=== PATIENT | female | born 1945 | race Caucasian/White ===

== ENCOUNTER 2017-10-25 16:46 | Emergency (ER) | payer OTHER, MEDICARE, SELFPAY ==
[2017-10-25 16:48] VITALS: BP 142/81; PULSE 77; RESP 16; TEMP 36.1; O2SAT 98; BMI 32.5
[2017-10-25 16:53] VITALS: BMI 32.5
--- NOTE | 2017-10-25 18:20 | CT_ITS ---
STUDY: CT FACIAL BONES WITHOUT CONTRAST REASON FOR EXAM: Female, 72 years old. Fall. Hit nose and 4 head. No loss of consciousness. RADIATION DOSAGE (If Supplied By Facility): CTDIvol = ( 29.38 ) mGy, DLP = ( 496.03 ) mGycm TECHNIQUE: The patient was scanned in a multi detector CT scanner. Sagittal and coronal images were reconstructed. Individualized dose optimization techniques were used for this CT. COMPARISON: CT of the head, October 25, 2017. CT of the brain, January 12, 2017 and September 09, 2015. FINDINGS: Large soft tissue hematoma on the left frontal region. The soft tissues appear otherwise unremarkable. Normal orbital tillman and orbital contents. Is deformity of the left nasal bones which appears unchanged from the December 2016 CT and thought to be remote. There is no marked soft tissue swelling. Normal facial bones. There is no demonstrated acute fracture. Normal visualized paranasal sinuses. CT/Sinus/Facial Bone IMPRESSION: 1. Large soft tissue hematoma over the left frontal region. 2. Slight deformity left nasal bones. This appears similar to the [address] is thought to be chronic. No acute facial bone fractures are present. Electronically Signed: Timmy Gandhi DO at 19:17 EDT Tel [phone], Service support ,
--- NOTE | 2017-10-25 18:20 | CT_ITS ---
STUDY: CT BRAIN WITHOUT CONTRAST REASON FOR EXAM: Female, 72 years old. Fell. Hit nose and 4 head. No loss of consciousness. RADIATION DOSAGE (If Supplied By Facility): CTDIvol = ( 44.99 ) mGy, DLP = ( 745.49 ) mGycm TECHNIQUE: Transaxial CT imaging of the brain was performed without administration of intravenous contrast material. Individualized dose optimization techniques were used for this CT. COMPARISON: January 12, 2017. FINDINGS: A large soft tissue hematoma over the left frontal region. There is stable deformity of the nasal bones suggesting remote fracture. Normal calvarium. Normal size ventricles and extra-axial spaces for the patient's age. Normal white matter tracts of the cerebral hemispheres. Normal basal ganglia and thalami. Normal brainstem. Normal cerebellum. There is no intracranial hemorrhage. There are no findings of an acute ischemic infarction. Normal visualized paranasal sinuses. CT/Brain/Head without Contrast IMPRESSION: 1. No acute intracranial or calvarial abnormality or major interval change. 2. Large subcutaneous hematoma over the left frontal region. Electronically Signed: Timmy Gandhi DO at 19:13 EDT Tel [phone], Service support ,
--- NOTE | 2017-10-25 18:20 | RAD_ITS ---
STUDY: X-RAY - RIGHT HAND REASON FOR EXAM: Female, 72 years old. Fall. Pain in the fifth metacarpal region. TECHNIQUE: 3 view(s) of the hand. COMPARISON: None. FINDINGS: Normal radiocarpal articulation. Normal distal radioulnar joint. Normal visualized carpal bones. 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 The remainder of the carpal articulations are normal. Normal carpometacarpal articulation of the thumb. Normal second through fifth carpometacarpal joints. Normal metacarpi. Normal metacarpophalangeal joint of the thumb. Normal interphalangeal joint of the thumb. Normal proximal and distal phalanges of the thumb. Normal metacarpophalangeal joints of the second through fifth fingers. There is diffuse articular joint space narrowing of the proximal and distal interphalangeal joints of the second through fifth fingers, but without erosive changes or periarticular soft tissue swelling. Normal phalanges of the second through fifth fingers. The soft tissue structures are unremarkable. RAD/Hand Min 3 Views IMPRESSION: Mild degenerative changes of the hand. There is no evidence of acute fracture or dislocation. Electronically Signed: Timmy Gandhi DO at 19:32 EDT Tel [phone], Service support ,
--- NOTE | 2017-10-25 19:15 | ED.DCSUM_ITS ---
- ER Visit Summary Date of Service: 10/25/17 Chief Complaint: Fall History of Present Illness: The patient is a 72 F presents to the emergency department after mechanical fall. Patient was at work. She states that her feet got tangled up with 1 of the children at her work. She fell forward. She landed directly on her face. She did not lose consciousness. She had a lot of swelling in her upper head and some pain in her nose. She also struck her right hand. She is not on anticoagulants. She does feel like her tetanus is up -to-date. She denies other injury. Physical Examination: Exam relatively unremarkable. Patient is a 5 cm ovoid hematoma the left forehead. Pupils are equal round reactive. No evidence of entrapment. There is nasal trauma, but no nasal septal hematoma. Midface is stable. No malocclusion. No neck tenderness. Heart regular rate and rhythm. Lungs clear. Abdomen soft nontender. Patient has ecchymosis on the dorsum of the right hand but flexion and extension are preserved. Patient moves all 4 extremities. GCS is 15. Test Results: [] Emergency Department Course and Treatment: Patient underwent CT of the head and face. There is evidence of hematoma, but no intracranial process. There is chronic appearing fracture of the nasal bones. X-rays of the hand are unremarkable. The patient is a symptomatic. She ambulate with a steady gait. She will continue ice and anti-inflammatories. She will be given outpatient follow-up with [facility] care. Patient is discharged home. Treatment Plan: [] Disposition: Discharge Impression: 1. Facial contusion 2. Nasal contusion 3. Right hand contusion This note was generated with [employer] dictation software. It may contain incorrect words, spelling, and punctuation that were not noted in review of the chart prior to signing ED Disposition - Plan for ED Patient: Chief Complaint: Fall Instructions: ED Contusion Face [facility] [place] [GROUP OF PHYSICIANS] - 3-5 Days
[2017-10-25 20:37] VITALS: BP 141/83; PULSE 76; RESP 15; O2SAT 97
[2017-10-25 20:38] VITALS: BP 141/83; PULSE 76; RESP 15; O2SAT 97
== END 2017-10-25 20:39 | disposition home or self-care (01) ==
PROVIDERS: Emergency Provider Emergency Medicine; Family Provider Family Medicine; PCP Family Medicine
DX: S00.33XA Contusion of nose, initial encounter (principal); S60.221A Contusion of right hand, initial encounter; S00.83XA Contusion of other part of head, initial encounter; W03.XXXA Other fall on same level due to collision with another person, initial encounter; Y93.89 Activity, other specified; Y92.89 Other specified places as the place of occurrence of the external cause; Y99.0 Civilian activity done for income or pay
CPT/HCPCS: 70450; 70486; 73130; 99282

== ENCOUNTER → 2018-01-15 09:41 | Outpatient (CLI) | payer MEDICARE, SELFPAY ==
[2018-01-15 12:20] LABS: AST(SGOT) 19 U/L (15-37); Alanine Aminotransfer ALT/SGPT 34 U/L (13-56); Albumin, Serum 3.6 g/dL (3.2-5.0); Alkaline Phosphatase 95 U/L (45-117); Anion Gap 6 (5-15); BUN 18 mg/dL (7-18); BUN/Creat Ratio 26.2 RATIO (10-20); Calcium,Total 8.9 mg/dL (8.5-10.1); Chloride 109 mmol/L (98-107); Cholesterol 190 mg/dL (200); Creatinine, Serum 0.69 mg/dL (0.55-1.02); EST Glomerular Filtration Rate 90 mL/min (>60); Est Glom Filt Rate - Afr Amer 109 mL/min (>60); Globulin 3.7 g/dL (2.2-4.2); Glucose 87 mg/dL (74-106); High Density Lipoprotein 48 mg/dL; Magnesium 2.1 mg/dL (1.6-2.6); Potassium 3.9 mmol/L (3.5-5.1); Protein, Total 7.3 g/dL (6.4-8.2); Sodium Level 141 mmol/L (136-145); Thyroid Stim Hormone (TSH) 1.99 uIU/mL (0.358-3.74); Triglycerides 136 mg/dL; Very Low Density Lipoprotein 27 mg/dL (5-40)
[2018-01-15 12:32] LABS: Microalbumin,Random Urine 8.9 mg/L (NO RANGE EST.); Microalbumin:Creatinine Ratio 12.6 mg/g CRE (<30 mg/g CRE)
== END ==
PROVIDERS: Family Provider Family Medicine; PCP Family Medicine; Visit Provider Family Medicine
DX: I10 Essential (primary) hypertension (principal); I49.9 Cardiac arrhythmia, unspecified
CPT/HCPCS: 36415; 80053; 80061; 82043; 82570; 83735; 84443

== ENCOUNTER → 2018-08-27 | Outpatient (CLI) | payer MEDICARE, SELFPAY ==
[2017-10-30 13:02] VITALS: BMI 33.5
[2018-08-27 12:41] LABS: Anion Gap 5 (5-15); BUN 18 mg/dL (7-18); BUN/Creat Ratio 27.4 RATIO (10-20); Calcium,Total 8.8 mg/dL (8.5-10.1); Chloride 108 mmol/L (98-107); Creatinine, Serum 0.66 mg/dL (0.55-1.02); EST Glomerular Filtration Rate 94 mL/min (>60); Est Glom Filt Rate - Afr Amer 114 mL/min (>60); Glucose 86 mg/dL (74-106); Potassium 3.8 mmol/L (3.5-5.1); Sodium Level 141 mmol/L (136-145)
[2018-08-27 12:55] LABS: Microalbumin,Random Urine 16.7 mg/L (NO RANGE EST.); Microalbumin:Creatinine Ratio 17.8 mg/g CRE (<30 mg/g CRE)
== END | disposition home or self-care (01) ==
LOC: MFPLAB 10:52
PROVIDERS: Family Provider Family Medicine; PCP Family Medicine; Referring Provider Family Medicine; Visit Provider Family Medicine
DX: I10 Essential (primary) hypertension (principal)
CPT/HCPCS: 36415; 80048; 82043; 82570

== ENCOUNTER → 2018-11-19 | Outpatient (CLI) | payer MEDICARE, SELFPAY ==
--- NOTE | 2018-11-19 10:28 | BI_ITS ---
REPORT MAMMOGRAPHY - BILATERAL SCREENING REASON FOR EXAM: Female, 73 years old. Routine annual screening examination. PERTINENT HISTORY: Non-contributory. TECHNIQUE: Digital bilateral breast umesh (3D mammographic acquisition) in the CC and MLO projections. 2-D mediolateral oblique (MLO) and craniocaudad (CC) views of both breasts were obtained. CAD: Full Field Digital Mammography with Computer Added Detection was performed. COMPARISON: Comparison is made with prior examination dated July 13, 2015. FINDINGS: Breast Composition: There are scattered areas of fibroglandular density. There are no dominant masses or suspicious calcifications. No other significant abnormalities are identified. There has been no significant change since the prior study. BI/SCREEN MAMM (CAD) W/UMESH BILAT IMPRESSION: Stable bilateral screening mammogram. Yearly follow-up mammogram recommended. (A) ASSESSMENT CATEGORY: BIRADS Category 1: Negative. A letter regarding these results will be sent to the patient by the facility within 30 days. Approximately 10% of breast cancers are not detected by mammography. A normal mammogram should not delay biopsy of a clinically suspicious abnormality. [id number] Electronically Signed: Emiliano Mclaughlin, at 11:25 EDT , Service support ,
== END | disposition home or self-care (01) ==
LOC: OPBI 10:26
PROVIDERS: Family Provider Family Medicine; PCP Family Medicine; Referring Provider Family Medicine; Visit Provider Family Medicine
DX: Z12.31 Encounter for screening mammogram for malignant neoplasm of breast (principal)
CPT/HCPCS: 77063; 77067

== ENCOUNTER → 2019-09-30 09:46 | Outpatient (CLI) | payer MEDICARE, SELFPAY ==
[2017-10-30 13:02] VITALS: BMI 33.5
[2019-09-30 12:44] LABS: Absolute Lymphocyte Count 1.76 X10^3/uL (0.83-4.51); Absolute Neutrophil Count 3.6 X10^3/uL (2.0-7.7); Basophil# 0.04 X10^3/uL; Basophil% 0.7 % (0-1); Eosinophil# 0.21 X10^3/uL; Eosinophils% 3.5 % (0-5); Hematocrit 47.9 % (37-47); Hemoglobin 15.5 g/dL (12.0-15.0); Lymphocyte # 1.76 X10^3/ul (4.0); Lymphocyte % 29.3 % (19-41); Mean Corp Hgb Conc 32.4 g/dL (32-36); Mean Corpuscular Hgb 30.6 pg (27.0-32.0); Mean Corpuscular Volume 94.7 fL (81-99); Mean Platelet Vol. 10.4 fl (6.2-12.0); Monocyte% 6.7 % (0-10); NRBC Flagged by Analyzer 0 % (0-5); Neutrophil # 3.57 X10^3/uL (2.7-7.7); Neutrophil % 59.5 % (47-70); Platelet Count 276 K/mm3 (150-450); RBC Distribution Width CV 13.2 % (11.6-14.6); RBC Distribution Width SD 45.9 fl (35.1-43.9); Red Blood Count 5.06 M/mm3 (4.2-5.4)
[2019-09-30 12:54] LABS: Anion Gap 6 (5-15); BUN 21 mg/dL (7-18); BUN/Creat Ratio 30.9 RATIO (10-20); Calcium,Total 9.2 mg/dL (8.5-10.1); Chloride 113 mmol/L (98-107); Creatinine, Serum 0.68 mg/dL (0.55-1.02); EST Glomerular Filtration Rate 91 mL/min (>60); Est Glom Filt Rate - Afr Amer 110 mL/min (>60); Glucose 91 mg/dL (74-106); Potassium 3.8 mmol/L (3.5-5.1); Sodium Level 145 mmol/L (136-145)
[2019-09-30 13:21] LABS: Microalbumin,Random Urine 6.7 mg/L (NO RANGE EST.)
[2019-09-30 13:35] LABS: Hepatitis C Antibody Non-Reactive (Nonreactive)
== END ==
PROVIDERS: PCP Family Medicine; Referring Provider Family Medicine; Visit Provider Family Medicine
DX: I10 Essential (primary) hypertension (principal); Z11.59 Encounter for screening for other viral diseases
CPT/HCPCS: 36415; 80048; 82043; 82570; 85025; 86803

== ENCOUNTER → 2019-10-28 07:25 | Outpatient (CLI) | payer MEDICARE, SELFPAY ==
[2017-10-30 13:02] VITALS: BMI 33.5
[2019-10-28 07:59] LABS: Absolute Lymphocyte Count 2.48 X10^3/uL (0.83-4.51); Absolute Neutrophil Count 3.2 X10^3/uL (2.0-7.7); Basophil# 0.05 X10^3/uL; Basophil% 0.8 % (0-1); Eosinophil# 0.21 X10^3/uL; Eosinophils% 3.3 % (0-5); Hematocrit 47.7 % (37-47); Hemoglobin 15.7 g/dL (12.0-15.0); Lymphocyte # 2.48 X10^3/ul (4.0); Lymphocyte % 38.6 % (19-41); Mean Corp Hgb Conc 32.9 g/dL (32-36); Mean Corpuscular Volume 94.3 fL (81-99); Monocyte# 0.47 X10^3/uL; Monocyte% 7.3 % (0-10); NRBC Flagged by Analyzer 0 % (0-5); Neutrophil % 49.8 % (47-70); Platelet Count 252 K/mm3 (150-450); RBC Distribution Width SD 44.3 fl (35.1-43.9); Red Blood Count 5.06 M/mm3 (4.2-5.4); White Blood Count 6.4 K/mm3 (4.4-11.0)
[2019-10-28 08:32] LABS: AST(SGOT) 16 U/L (15-37); Alanine Aminotransfer ALT/SGPT 23 U/L (13-56); Albumin, Serum 3.8 g/dL (3.2-5.0); Alkaline Phosphatase 85 U/L (45-117); Anion Gap 4 (5-15); BUN 20 mg/dL (7-18); BUN/Creat Ratio 27.1 RATIO (10-20); Bilirubin, Direct 0.17 mg/dL (0.00-0.30); Calcium,Total 8.7 mg/dL (8.5-10.1); Chloride 109 mmol/L (98-107); Creatinine, Serum 0.74 mg/dL (0.55-1.02); EST Glomerular Filtration Rate 82 mL/min (>60); Est Glom Filt Rate - Afr Amer 99 mL/min (>60); Globulin 3.8 g/dL (2.2-4.2); Glucose 88 mg/dL (74-106); Potassium 3.6 mmol/L (3.5-5.1); Protein, Total 7.6 g/dL (6.4-8.2); Sodium Level 141 mmol/L (136-145)
[2019-10-28 09:08] LABS: Hepatitis B Surface Antibody Non-Reactive; Hepatitis B Surface Antigen Non-Reactive (Nonreactive); Hepatitis C Antibody Non-Reactive (Nonreactive)
[2019-10-31 06:08] LABS: QNTFERON TB Mitogen Value > 10.00 IU/mL (.); QNTFERON TB Nil Value 0.04 IU/mL (.); QNTFERON TB1+ Ag Value 0.05 IU/mL (.); QNTFERON TB2+ Ag Value 0.02 IU/mL (.)
[2019-10-31 08:20] LABS: Hepatitis B Core Ab Total Negative (Negative); QNTIFERON TB Positive Criteria Negative (Negative)
== END ==
PROVIDERS: PCP Family Medicine; Referring Provider Dermatology; Visit Provider Dermatology
DX: L40.0 Psoriasis vulgaris (principal); Z79.899 Other long term (current) drug therapy
CPT/HCPCS: 36415; 80048; 80076; 85025; 86480; 86704; 86706; 86803; 87340

== ENCOUNTER → 2020-05-18 13:18 | Outpatient (CLI) | payer MEDICARE, SELFPAY ==
[2017-10-30 13:02] VITALS: BMI 33.5
--- NOTE | 2020-05-18 13:23 | CYSPIN_PTH ---
PATIENT: REBECCA EVANS LOC: [facility] U#:[id number] AGE/SX: 79/F ROOM: RE05/18/[address]: Dr. Rufus Lazo MD : 1945 BED: DIS: SPEC #: [id number] RECD: 05/19/20 07:40 STATUS: DIONE LUIS EDUARDO #: [id number] ZO: 05/18/20 13:[address]: Rufus Lazo DEPT: CYTOLOGY RECD BY: Saida Hernandez Tissues: Urine Procedures: Pap Stain (control) Special Stain Group II Special Stain Group I AFB Stain (control) Cytospin Fluid HEADER OPERATION: Not noted PRE-OP DIAGNOSIS: Dysuria TISSUE SUBMITTED: Urine for cytology DIAGNOSIS CYTOLOGY Urine for cytology (cytospin): Negative for malignant cells. Negative for acid fast bacilli. See comment. AM:won 05/19/2020 COMMENT AFB stain with matched control was used in the evaluation of this case. The specimen primarily consists of squamous epithelial cells. Clinical correlation is suggested. CYTOLOGY STUDY Slides are reviewed. CYTOLOGY GROSS Received is 10 ml of light yellow cloudy fluid labeled with the patient's name and and designated per the requisition as urine. Submitted for cytology preparation. / won 05/18/20 TC:5 CPT: 32860, 97311
[2020-05-18 13:34] LABS: Acid Fast Stain SEE PATHOLOGY REPORT
[2020-05-18 15:19] LABS: Absolute Lymphocyte Count 2.06 X10^3/uL (0.83-4.51); Absolute Neutrophil Count 3.9 X10^3/uL (2.0-7.7); Basophil# 0.05 X10^3/uL; Basophil% 0.7 % (0-1); Eosinophil# 0.26 X10^3/uL; Eosinophils% 3.8 % (0-5); Hematocrit 46.8 % (37-47); Hemoglobin 14.9 g/dL (12.0-15.0); Lymphocyte # 2.06 X10^3/ul (4.0); Lymphocyte % 30.3 % (19-41); Mean Corp Hgb Conc 31.8 g/dL (32-36); Mean Corpuscular Hgb 29.8 pg (27.0-32.0); Mean Corpuscular Volume 93.6 fL (81-99); Monocyte# 0.49 X10^3/uL; Monocyte% 7.2 % (0-10); NRBC Flagged by Analyzer 0 % (0-5); Neutrophil % 57.6 % (47-70); Platelet Count 301 K/mm3 (150-450); RBC Distribution Width CV 13.1 % (11.6-14.6); White Blood Count 6.8 K/mm3 (4.4-11.0)
[2020-05-18 15:51] LABS: ALB/GLOB Ratio 1.1 RATIO (0.9-2.4); AST(SGOT) 13 U/L (15-37); Alanine Aminotransfer ALT/SGPT 24 U/L (13-56); Albumin, Serum 3.9 g/dL (3.2-5.0); Alkaline Phosphatase 92 U/L (45-117); Anion Gap 6 (5-15); BUN 14 mg/dL (7-18); BUN/Creat Ratio 22.6 RATIO (10-20); CRP 6.51 mg/L (0.0-3.0); Calcium,Total 8.9 mg/dL (8.5-10.1); Chloride 109 mmol/L (98-107); Creatinine, Serum 0.62 mg/dL (0.55-1.02); EST Glomerular Filtration Rate 100 mL/min (>60); Est Glom Filt Rate - Afr Amer 121 mL/min (>60); Globulin 3.7 g/dL (2.2-4.2); Glucose 85 mg/dL (74-106); Potassium 3.7 mmol/L (3.5-5.1); Protein, Total 7.6 g/dL (6.4-8.2); Sodium Level 143 mmol/L (136-145)
[2020-05-18 15:53] LABS: Color, Urine Yellow (Yellow); Glucose, Dipstick Normal (Normal); Ketone-Dipstick Negative (Negative); Leukocyte Esterase-Dipstick Negative /ul (Negative); Nitrite-Dipstick Negative (Negative); Occult Blood-Urine Negative /ul (Negative); Protein-Dipstick Negative (Negative); Specific Gravity, Urine 1.005 (1.002-1.030); Urine Bilirubin Dipstick Negative (Negative); Urine Clarity Clear (Clear); Urine Urobilinogen Normal (Normal)
[2020-05-23 03:06] LABS: QNTFERON TB Mitogen Value > 10.00 IU/mL (.); QNTFERON TB Nil Value 0.07 IU/mL (.); QNTFERON TB1+ Ag Value 0.08 IU/mL (.); QNTFERON TB2+ Ag Value 0.15 IU/mL (.)
[2020-05-23 07:59] LABS: QNTIFERON TB Positive Criteria Negative (Negative)
== END ==
PROVIDERS: PCP Family Medicine; Referring Provider Family Medicine; Visit Provider Family Medicine
DX: R10.32 Left lower quadrant pain (principal); R30.0 Dysuria
CPT/HCPCS: 36415; 80053; 81001; 81002; 85025; 86140; 86480; 87086; 87088; 88108; 88312; 88313

== ENCOUNTER → 2020-05-20 11:06 | Outpatient (CLI) | payer MEDICARE, SELFPAY ==
--- NOTE | 2020-05-20 11:08 | CT_ITS ---
STUDY: CT ABDOMEN AND PELVIS WITH CONTRAST REASON FOR EXAM: Female, 75 years old. Recurrent dysuria and suprapubic and LLQ pain. Concern hydronephrosis RADIATION DOSAGE (If Supplied By Facility): CTDIvol = ( 18.31 ) mGy, DLP = ( 1305.87 ) mGycm TECHNIQUE: Transaxial images were obtained from the dome of the diaphragm to the symphysis pubis without oral contrast. IV 100mL Isovue-300 was administered. Sagittal and coronal images were reconstructed. Individualized dose optimization techniques were used for this CT. COMPARISON: None. FINDINGS: The visualized lung bases are unremarkable. The visualized portions of the heart are within normal limits. Normal liver. Normal gallbladder and extrahepatic biliary system. There is a 6.9 mm cyst in the posterior superior aspect of the spleen. Calcified granuloma in the anterior midportion of the spleen. Normal pancreas. Normal bilateral adrenal glands. Normal right kidney. Normal left kidney. Normal visualized stomach. Normal small intestine. Normal colon. The appendix is visualized and appears normal. There is scattered atherosclerotic calcification of the abdominal aorta, without a demonstrated aneurysm. Normal inferior vena cava. Normal retroperitoneum. Normal urinary bladder. There is absence of the uterus consistent with a prior hysterectomy. Normal abdominal wall. Normal osseous structures. CT/Abdomen/Pelvis WITH Contrast IMPRESSION: 6.9 mm cyst in the posterior superior aspect of the spleen. Electronically Signed: Emiliano Mclaughlin MD at 13:57 EST , Service support ,
== END ==
PROVIDERS: PCP Family Medicine; Referring Provider Family Medicine; Visit Provider Family Medicine
DX: R10.32 Left lower quadrant pain (principal)
CPT/HCPCS: 74177; Q9967

== ENCOUNTER → 2020-07-22 09:52 | Outpatient (CLI) | payer MEDICARE, SELFPAY ==
[2017-10-30 13:02] VITALS: BMI 33.5
[2020-07-22 12:22] LABS: AST(SGOT) 14 U/L (15-37); Alanine Aminotransfer ALT/SGPT 19 U/L (13-56); Albumin, Serum 3.6 g/dL (3.2-5.0); Alkaline Phosphatase 94 U/L (45-117); Anion Gap 3 (5-15); BUN 13 mg/dL (7-18); BUN/Creat Ratio 16.9 RATIO (10-20); Calcium,Total 8.9 mg/dL (8.5-10.1); Chloride 110 mmol/L (98-107); Cholesterol 203 mg/dL (200); Creatinine, Serum 0.77 mg/dL (0.55-1.02); EST Glomerular Filtration Rate 78 mL/min (>60); Est Glom Filt Rate - Afr Amer 95 mL/min (>60); Globulin 3.7 g/dL (2.2-4.2); Glucose 97 mg/dL (74-106); High Density Lipoprotein 51 mg/dL; Potassium 3.8 mmol/L (3.5-5.1); Protein, Total 7.3 g/dL (6.4-8.2); Sodium Level 141 mmol/L (136-145); Triglycerides 150 mg/dL; Very Low Density Lipoprotein 30 mg/dL (5-40)
== END ==
PROVIDERS: PCP Family Medicine; Referring Provider Family Medicine; Visit Provider Family Medicine
DX: I10 Essential (primary) hypertension (principal)
CPT/HCPCS: 36415; 80053; 80061

== ENCOUNTER → 2020-12-28 11:25 | Outpatient (CLI) | payer MEDICARE, SELFPAY ==
[2020-12-28 15:26] LABS: Absolute Neutrophil Count 2.8 X10^3/uL (2.0-7.7); Basophil# 0.06 X10^3/uL; Eosinophil# 0.22 X10^3/uL; Eosinophils% 3.7 % (0-5); Hemoglobin 15.5 g/dL (12.0-15.0); Lymphocyte % 40.3 % (19-41); Mean Corp Hgb Conc 32.3 g/dL (32-36); Mean Corpuscular Hgb 30.6 pg (27.0-32.0); Mean Corpuscular Volume 94.9 fL (81-99); Mean Platelet Vol. 10.5 fl (6.2-12.0); Monocyte# 0.44 X10^3/uL; Monocyte% 7.4 % (0-10); NRBC Flagged by Analyzer 0 % (0-5); Neutrophil # 2.81 X10^3/uL (2.7-7.7); Neutrophil % 47.3 % (47-70); Platelet Count 306 K/mm3 (150-450); RBC Distribution Width CV 13.2 % (11.6-14.6); RBC Distribution Width SD 46.4 fl (35.1-43.9); Red Blood Count 5.06 M/mm3 (4.2-5.4)
[2020-12-28 15:57] LABS: ALB/GLOB Ratio 0.9 RATIO (0.9-2.4); AST(SGOT) 17 U/L (15-37); Alanine Aminotransfer ALT/SGPT 25 U/L (13-56); Albumin, Serum 3.6 g/dL (3.2-5.0); Alkaline Phosphatase 88 U/L (45-117); Anion Gap 8 (5-15); BUN 17 mg/dL (7-18); BUN/Creat Ratio 23.1 RATIO (10-20); Calcium,Total 8.7 mg/dL (8.5-10.1); Chloride 107 mmol/L (98-107); Creatinine, Serum 0.74 mg/dL (0.55-1.02); EST Glomerular Filtration Rate 82 mL/min (>60); Est Glom Filt Rate - Afr Amer 100 mL/min (>60); Globulin 3.8 g/dL (2.2-4.2); Glucose 112 mg/dL (74-106); Potassium 3.7 mmol/L (3.5-5.1); Protein, Total 7.4 g/dL (6.4-8.2); Sodium Level 141 mmol/L (136-145)
[2021-01-04 06:08] LABS: QNTFERON TB Mitogen Value > 10.00 IU/mL (.); QNTFERON TB Nil Value 0.04 IU/mL (.); QNTFERON TB1+ Ag Value 0.04 IU/mL (.); QNTFERON TB2+ Ag Value 0.02 IU/mL (.)
[2021-01-04 07:58] LABS: QNTIFERON TB Positive Criteria Negative (Negative)
== END ==
PROVIDERS: PCP Family Medicine; Referring Provider Dermatology; Visit Provider Dermatology
DX: L40.0 Psoriasis vulgaris (principal); Z79.899 Other long term (current) drug therapy
CPT/HCPCS: 36415; 80053; 85025; 86480

== ENCOUNTER 2021-05-24 13:14 | Outpatient (CLI) | payer MEDICARE, SELFPAY ==
--- NOTE | 2021-05-24 13:18 | BI_ITS ---
MAMMOGRAPHY - BILATERAL SCREENING REASON FOR EXAM: Female, 76 years old. Routine annual screening examination. PERTINENT HISTORY: Non-contributory. TECHNIQUE: Digital bilateral breast umesh (3D mammographic acquisition) in the CC and MLO projections. 2-D mediolateral oblique (MLO) and craniocaudad (CC) views of both breasts were obtained. CAD: Full Field Digital Mammography with Computer Added Detection was performed. COMPARISON: Comparison is made with prior study 11/19/2018 and 07/13/2015. FINDINGS: Breast Composition: There are scattered areas of fibroglandular density. There are no dominant masses or suspicious calcifications. Stable benign-appearing bilateral axillary nodes. No other significant abnormalities are identified. There has been no significant change since the prior study. BI/SCRN MAMM (CAD)W/UMESH BILAT IMPRESSION: Stable bilateral screening mammogram. Yearly follow-up mammogram recommended. (A) ASSESSMENT CATEGORY: BIRADS Category 2: Benign. A letter regarding these results will be sent to the patient by the facility within 30 days. Approximately 10% of breast cancers are not detected by mammography. A normal mammogram should not delay biopsy of a clinically suspicious abnormality. [id number] Electronically Signed: Emiliano Mclaughlin MD at 14:22 EST ,
--- NOTE | 2021-05-24 13:22 | BD_ITS ---
STUDY: DUAL ENERGY X-RAY ABSORPTIOMETRY / DXA REASON FOR EXAM: Female, 76 years old. [id number] TECHNIQUE: Bone Mineral Density (BMD) measurements of lumbar spine and bilateral hips were obtained. COMPARISON: None. FINDINGS: Lumbar Spine (L1-L4): g/cm2 (1.082) / T-score (0.6) / Z-score (2.9) Findings are suggestive of normal bone density with a low fracture risk. Left Femur Total: g/cm2 (0.999) / T-score (0.5) / Z-score (2.2) Left Femoral Neck: g/cm2 (0.891) / T-score (0.4) / Z-score (2.4) Right Femur Total: g/cm2 (0.949) / T-score (0.1) / Z-score (1.8) Right Femoral Neck: g/cm2 (0.818) / T-score (-0.3) / Z-score (1.7) BD/Dexa Bone Density Study IMPRESSION: The patient is considered normal as outlined below according to World Harrison Organization (WHO) criteria with a low fracture risk. Reference Information: The T-score is the number of standard deviations above or below the standard which is normal for young adults at their peak bone mineral density. The World Health Organization (WHO) interprets the T-scores as follows: Above -1 Normal bone density Between -1 and -2.5 Osteopenia Equal to / or below -2.5 Osteoporosis As a practical clinical guideline, osteopenia may be graded as follows: Mild -1 through -1.5 Moderate -1.6 through -2.0 Severe -2.1 through -2.4 The Z-score is the number of standard deviations above or below age-matched controls. A Z-score of less than -1.5 would be considered abnormal. References: 1. NIH Osteoporosis and Related Bone Diseases www osteo.org 2. International Society for Clinical Densitometry www iscd.org 3. National Osteoporosis Foundation www nof.org Electronically Signed: Emiliano Mclaughlin MD at 13:32 EST ,
== END 2021-05-24 23:59 | disposition home or self-care (01) ==
LOC: OPBD 13:15
PROVIDERS: PCP Family Medicine; Referring Provider Family Medicine; Visit Provider Family Medicine
DX: Z78.0 Asymptomatic menopausal state (principal); Z12.31 Encounter for screening mammogram for malignant neoplasm of breast
CPT/HCPCS: 77063; 77067; 77080

== ENCOUNTER → 2021-08-30 | Outpatient (CLI) | payer MEDICARE, SELFPAY ==
[2021-08-30 14:57] LABS: Absolute Neutrophil Count 3.1 X10^3/uL (2.0-7.7); Basophil# 0.06 X10^3/uL; Eosinophil# 0.23 X10^3/uL; Eosinophils% 3.9 % (0-5); Hematocrit 48.7 % (37-47); Hemoglobin 15.7 g/dL (12.0-15.0); Lymphocyte % 33.8 % (19-41); Mean Corp Hgb Conc 32.2 g/dL (32-36); Mean Corpuscular Hgb 30.3 pg (27.0-32.0); Mean Corpuscular Volume 93.8 fL (81-99); Mean Platelet Vol. 10.5 fl (6.2-12.0); Monocyte# 0.49 X10^3/uL; Monocyte% 8.3 % (0-10); NRBC Flagged by Analyzer 0 % (0-5); Neutrophil # 3.13 X10^3/uL (2.7-7.7); Neutrophil % 52.8 % (47-70); Platelet Count 298 K/mm3 (150-450); RBC Distribution Width CV 12.7 % (11.6-14.6); RBC Distribution Width SD 44.1 fl (35.1-43.9); Red Blood Count 5.19 M/mm3 (4.2-5.4); White Blood Count 5.9 K/mm3 (4.4-11.0)
[2021-08-30 15:28] LABS: AST(SGOT) 16 U/L (15-37); Alanine Aminotransfer ALT/SGPT 23 U/L (13-56); Albumin, Serum 3.8 g/dL (3.2-5.0); Alkaline Phosphatase 83 U/L (45-117); Anion Gap 4 (5-15); BUN 18 mg/dL (7-18); BUN/Creat Ratio 23.7 RATIO (10-20); Calcium,Total 8.9 mg/dL (8.5-10.1); Chloride 108 mmol/L (98-107); Cholesterol 218 mg/dL (200); Creatinine, Serum 0.76 mg/dL (0.55-1.02); EST Glomerular Filtration Rate 79 mL/min (>60); Est Glom Filt Rate - Afr Amer 96 mL/min (>60); Globulin 3.8 g/dL (2.2-4.2); Glucose 94 mg/dL (74-106); High Density Lipoprotein 50 mg/dL; Potassium 4.1 mmol/L (3.5-5.1); Protein, Total 7.6 g/dL (6.4-8.2); Sodium Level 139 mmol/L (136-145); Thyroid Stim Hormone (TSH) 1.82 uIU/mL (0.358-3.74); Triglycerides 194 mg/dL; Very Low Density Lipoprotein 39 mg/dL (5-40)
== END | disposition home or self-care (01) ==
LOC: MFPLAB 11:42
PROVIDERS: PCP Family Medicine; Referring Provider Family Medicine; Visit Provider Family Medicine
DX: L40.9 Psoriasis, unspecified (principal); I10 Essential (primary) hypertension
CPT/HCPCS: 36415; 80053; 80061; 84443; 85025

== ENCOUNTER → 2022-01-03 | Outpatient (CLI) | payer MEDICARE, SELFPAY ==
[2022-01-06 15:08] LABS: QNTFERON TB Mitogen Value > 10.00 IU/mL (.); QNTFERON TB Nil Value 0.06 IU/mL (.); QNTFERON TB1+ Ag Value 0.04 IU/mL (.); QNTFERON TB2+ Ag Value 0.05 IU/mL (.)
[2022-01-07 13:35] LABS: QNTIFERON TB Positive Criteria Negative (Negative)
== END | disposition home or self-care (01) ==
LOC: MTLAB 10:51
PROVIDERS: PCP Family Medicine; Referring Provider Dermatology; Visit Provider Dermatology
DX: L40.0 Psoriasis vulgaris (principal); Z79.899 Other long term (current) drug therapy
CPT/HCPCS: 36415; 86480

== ENCOUNTER 2022-07-07 22:34 | Emergency (ER) | payer OTHER, MEDICARE, SELFPAY ==
[2022-07-07 22:36] VITALS: BP 155/72; PULSE 78; RESP 16; TEMP 36.6; O2SAT 93; BMI 33.5
--- NOTE | 2022-07-07 22:51 | CT_ITS ---
EXAM: CT HEAD WITHOUT INTRAVENOUS CONTRAST CLINICAL INDICATION: FALL -- HEAD INJURY TECHNIQUE: Multiple axial images were obtained of the head without intravenous contrast. This CT exam was performed using one or more of the following dose reduction techniques: automated exposure control, adjustment of the mA and/or kV according to patient size, and/or use of iterative reconstruction technique. This report was created using [employer] report generation technology. RADIATION DOSE: CTDIvol = 44.99 mGy, DLP = 745.49 mGy-cm. COMPARISON: 10/25/2017. FINDINGS: BRAIN AND EXTRA-AXIAL SPACES: Unremarkable. No intra- or extra-axial hemorrhage. No evidence of acute infarct. No intracranial mass or mass effect. There is preservation of the combs/white matter interface. Posterior fossa structures are unremarkable. Ventricles are appropriate for age. No hydrocephalus. Basal cisterns are patent. BONES/JOINTS: Unremarkable. No discrete lytic or blastic abnormalities. SINUSES: Unremarkable as visualized. Clear. MASTOID AIR CELLS: Unremarkable. Clear. ORBITS: Visualized globes, extraocular muscles, optic nerves and retrobulbar fat appear unremarkable. CT/Brain/Head without Contrast IMPRESSION: Negative head/brain CT without intravenous contrast. Electronically Signed: Emeterio Ponce MD at 23:49 EDT ,
--- NOTE | 2022-07-07 22:53 | ED.RN ---
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 THIS RN EDUCATED PT AND FAMILY MEMBER ABOUT BEING SEEN AT THE [facility] TOMORROW MORNING TO COMPLETE REQUIRED DRUG SCREENING FOR WORKMANS COMP. PAMPHLET FOR [facility] GIVEN TO PT. PT VERBALIZES UNDERSTANDING. PT DENIES ANY QUESTIONS.
--- NOTE | 2022-07-08 00:25 | EX.ED.DYSGE1 ---
HPI History of Present Illness Chief Complaint: Fall Narrative Narrative: Patient is a 77-year-old female with past medical history of hypertension. She was at work this evening when she states she tripped and fell and struck her forehead on a broken plate. She states she sustained a laceration. She denies any loss of consciousness or blood thinner use. She states that there is been no real headache light sensitivity nausea vomiting or confusion. She states her tetanus status is under 5 years old. She reports that she was unsure if she needed sutures or imaging secondary to the head injury and therefore presents for evaluation [facility] Medical History (Updated 07/08/22 @ 07:[address] Alexandro Sanchez, DO) HTN (hypertension) Home Medications amlodipine 5 mg-benazepril 10 mg capsule 1 ea PO BID 01/12/17 [History Last Taken Unknown] Allergy/AdvReac Type Severity Reaction Status Date / Time No Known Allergies Allergy Verified 07/07/22 22:35 Social History (Updated 10/30/17 @ 13:26 by Stef SPEARS, PA) Smoking Status: Never smoker ROS ROS ED Constitutional Constitutional ED: Denies chills or fever(s) Eyes Eyes: Denies blurry vision or change in vision ENT ENT ED: Denies sore throat Cardiovascular Cardiovascular: Denies chest pain Respiratory/Chest Respiratory/Chest: Denies cough or dyspnea Gastrointestinal Gastrointestinal: Denies abdominal pain, diarrhea, nausea or vomiting Genitourinary Genitourinary ED: Denies dysuria Musculoskeletal Musculoskeletal: Denies back pain or neck pain Integumentary Reports other Details: Positive forehead laceration Neurologic Neurologic: Denies headache(s), paresthesias or weakness Hematologic/Lymphatic Hematologic/Lymphatic: Denies easy bleeding or easy bruising EXAM Physical Exam Const Vital Signs: 07/07/22 22:36 07/07/22 23:26 Temperature 97.9 F Temperature Source Temporal Pulse Rate 78 Respiratory Rate 16 Respiratory Effort Normal Non-Labored Respiratory Depth Normal Respiratory Pattern Normal Blood Pressure 155/72 H Blood Pressure Mean 99 Pulse Ox 93 Oxygen Delivery Method Room Air Room Air Positive well nourished and well developed General Appearance ED: well developed HEENT HEENT Narrative: No signs of depressed or basilar skull fracture. Patient has a 2 x 3 cm hematoma along the right portion of the forehead. There is a linear yet jagged 2 cm laceration in the center of this. There is minimal ooze of blood. No foreign body noted Eyes PERRL and EOMs intact bilaterally Neck supple Neck Narrative: No bony deformity or step-off of the cervical spine no midline pain on palpation Resp normal respiratory effort and clear to auscultation bilaterally Cardio regular rate and regular rhythm Back/Spine Back/Spine Narrative: No bony deformity or step-off of the thoracic or lumbar spine no midline pain on palpation Extremity normal to inspection Extremity Narrative: Pelvis is stable there is no shortening or external rotation of either lower extremity. Patient can move all extremities without difficulty Neuro oriented x3 and CN's II-XII intact bilaterally Sensorium / Orientation: alert Psych mental status grossly normal Skin Skin Narrative: Hematoma laceration to the right portion of the forehead as documented above MDM MDM MDM Narrative Medical decision making narrative: Patient reported mechanical fall and therefore there is no need for cardiac or syncope work-up. She has no midline pain of her neck or back and therefore do not feel there is imaging studies needed for this. Based on the fact she struck her head and has a laceration there is concern for skull fracture or brain bleed so a CT was obtained. Noncontrast CT of the brain revealed no acute skull fracture or bleed. As wound is linear and comes together well it was closed with Dermabond as documented below. As she reports tetanus is under 5 years old there is no need to update this either. Therefore at this time with no signs of depressed or basilar skull fracture no signs of spine injury or bony injury and no report/history concerning for cardiac event she is otherwise safe for discharge Patient had the right forehead wound cleaned with chlorhexidine. It was irrigated with copious amounts of normal saline. Manual pressure was applied to the wound edges which brought them together with close approximation. Dermabond was then applied over the wound edges and held the wound together well. Patient tolerated the procedure well without complication History & Record Review Discussion w/independent historian: Patient Radiography Diagnostic Testing: Clinical Impression(s) from Imaging Studies Brain CT 07/07/22 22:51 IMPRESSION: Negative head/brain CT without intravenous contrast. Electronically Signed: Emeterio Ponce MD at 23:49 EDT , Discharge Plan Triage Chief Complaint: Fall ED Provider: Alexandro Sanchez Dx/Rx/DC Orders Clinical Impression: Closed head injury, Forehead laceration, Accidental fall, History of hypertension Instructions: ED Head Injury (Adult), ED Laceration: Skin Adhesive Prescriptions: No Action amlodipine-benazepril 1 EACH capsule 1 ea PO BID Primary Care Provider: Rufus Lazo Referrals: Rufus Lazo MD [Primary Care Provider] - Activity Restrictions/Additional Instructions: Your CAT scan shows no skull fracture or brain bleed or retained foreign body. By exam you do not have a concussion. The Dermabond will fall off in the next 10 to 14 days and your wound will heal underneath normally. If you have any further concerns please return to the ER for repeat evaluation Disposition Disposition: Home, Self Care Discharge Date/Time: 07/08/22 00:49
== END 2022-07-08 00:49 | disposition home or self-care (01) ==
PROVIDERS: Emergency Provider Emergency Medicine; PCP Family Medicine; Visit Provider Emergency Medicine
DX: S01.81XA Laceration without foreign body of other part of head, initial encounter (principal); W19.XXXA Unspecified fall, initial encounter
CPT/HCPCS: 12011; 70450; 99283

== ENCOUNTER → 2022-10-20 | Outpatient (CLI) | payer MEDICARE, SELFPAY ==
[2022-10-20 10:28] LABS: Anion Gap 4 (5-15); BUN 16 mg/dL (7-18); BUN/Creat Ratio 20.1 RATIO (10-20); Chloride 110 mmol/L (98-107); EST Glomerular Filtration Rate 74 mL/min (>60); Est Glom Filt Rate - Afr Amer 90 mL/min (>60); Glucose 103 mg/dL (74-106); Potassium 4.1 mmol/L (3.5-5.1); Sodium Level 141 mmol/L (136-145)
== END | disposition home or self-care (01) ==
LOC: MFPLAB 09:11
PROVIDERS: PCP Family Medicine; Visit Provider Family Medicine
DX: I10 Essential (primary) hypertension (principal)
CPT/HCPCS: 36415; 80048

== ENCOUNTER → 2022-12-07 | Outpatient (CLI) | payer MEDICARE, SELFPAY ==
--- NOTE | 2022-12-07 09:32 | US_ITS ---
STUDY: SUPERFICIAL ULTRASOUND - LEFT POPLITEAL FOSSA. REASON FOR EXAM: Female, 77 years old. Left posterior knee, probable Crane''s Cyst TECHNIQUE: A superficial ultrasound was performed with real-time and static combs-scale imaging. COMPARISON: None. FINDINGS: Multiple images in the axial and longitudinal planes were obtained. No cystic or solid masses seen. No evidence of Crane cyst. US/Ext Non Vasc Limited/Soft Tiss IMPRESSION: No evidence of Crane''s cyst. Electronically Signed: Emiliano Mclaughlin MD at 15:08 EDT ,
== END | disposition home or self-care (01) ==
LOC: US 09:27
PROVIDERS: PCP Family Medicine; Referring Provider Family Medicine; Visit Provider Family Medicine
DX: M71.22 Synovial cyst of popliteal space [Baker], left knee (principal)
CPT/HCPCS: 76882

== ENCOUNTER → 2023-03-29 | Outpatient (CLI) | payer MEDICARE, SELFPAY ==
--- OUTSIDE RECORDS SUMMARY | 2023-03-29 17:21 | XMS RPT_ITS | CCD ---
Author Name Unknown Address [address] [place] [address] Organization [facility] Care Team Providers Care Social Worker Aide Name Role Phone Violet Lazo MD Primary Care Provider [phone] VIOLET LAZO Primary Care Unavailable VIOLET LAZO Primary Care Unavailable VIOLET ALZO Primary Care Unavailable VIOLET LAZO Primary Care Unavailable VIOLET LAZO Primary Care Unavailable VIOLET LAZO Primary Care Unavailable Violet Lazo MD Primary Care Provider [phone] Medications Current Medications Medication Drug Class(es) Dates Sig (Normalized) Sig (Original) cephalexin 500 mg oral capsule (2 sources) Cephalosporin Antibacterial Start: 07-10-2022 End: 07-17-2022 take 1 capsule by mouth twice daily cephALEXin (KEFLEX) 500 mg capsule Indications: Burning with urination Take 1 capsule by mouth twice daily for 7 days. 14 capsule 0 07/10/2022 07/17/2022 Active Completed/Discontinued Medications Medication Drug Class(es) Dates Sig (Normalized) Sig (Original) amLODIPine 10 mg oral tablet (11 sources) Dihydropyridine Calcium Channel Fernando Start: 02-21-2015 take 1 tablet by mouth once daily amLODIPine (NORVASC) 10 mg tablet Take 1 tablet by mouth once daily. 0 02/21/2015 Active Problems Problem Classification Problem Date Documented Da te Episodic/Chronic Cardiac dysrhythmias (1 source) Irregular heart beat; Translations: [Cardiac arrhythmia, unspecified] Chronic Genitourinary symptoms and ill-defined conditions (2 sources) Scalding pain on urination ; Translations: [Dysuria] Episodic Immunizations and screening for infectious disease (1 source) Suspected disease caused by 2019-nCoV; Translations: [Suspected COVID-19 virus infection] 01-28-2023 Episodic Other ear and sense organ disorders (1 source) Impacted cerumen of bilateral ears; Translations: [Impacted cerumen, bilateral] 10-21-2022 Episodic Other eye disorders (1 source) Subconjunctival hemorrhage of right eye; Translations: [Conjunctival hemorrhage, right eye] Episodic Other upper respiratory infections (1 source) Acute upper respiratory infection; Translations: [Acute upper respiratory infection, unspecified] 12-13-2022 Episodic Residual codes; unclassified (1 source) Procedure not done; Translations: [Procedure and treatment not carried out, unspecified reason] 12-03-2022 Episodic Urinary tract infections (2 sources) Recurrent urinary tract infection; Translations: [Urinary tract infection, site not specified] Episodic Results Test Name Value Interpretation Reference Range Facil ity Vital Signs Date Time Vital Sign Value Performing Clinician Agustina saavedra 01-28-2023 10:38-0500 Body temperature 99.5 [degF] Dariusz Quintana APRN.LICENSED PSYCHOLOGIST DIRECTOR Work Phone: [facility] 01-28-2023 10:38-0500 Body weight 93.44 kg Dariusz Quintana APRN.LICENSED PSYCHOLOGIST DIRECTOR Work Phone: [facility] 01-28-2023 10:38-0500 Diastolic blood pressure 80 mm[Hg] Dariusz Quintana APRN.LICENSED PSYCHOLOGIST DIRECTOR Work Phone: [facility] 01-28-2023 10:38-0500 Heart rate 88 /min Dariusz Quintana APRN.LICENSED PSYCHOLOGIST DIRECTOR Work Phone: [facility] 01-28-2023 10:38-0500 Respiratory rate 20 /min Dariusz Quintana APRN.LICENSED PSYCHOLOGIST DIRECTOR Work Phone: [facility] 01-28-2023 10:38-0500 SaO2% (BldA) [Mass fraction] 96 % Dariusz Quintana APRN.LICENSED PSYCHOLOGIST DIRECTOR Work Phone: [facility] 01-28-2023 10:38-0500 Systolic blood pressure 153 mm[Hg] Dariusz Quintana APRN.LICENSED PSYCHOLOGIST DIRECTOR Work Phone: [facility] 12-13-2022 09:28-0400 Body temperature 99.61 [degF] Medina Cabrera APRN.LICENSED PSYCHOLOGIST DIRECTOR Work Phone: [facility] 12-13-2022 09:28-0400 Body weight 91.81 kg Medina Cabrera APRN.LICENSED PSYCHOLOGIST DIRECTOR Work Phone: [facility] 12-13-2022 09:28-0400 Diastolic blood pressure 86 mm[Hg] Medina Cabrera APRN.LICENSED PSYCHOLOGIST DIRECTOR Work Phone: [facility] 12-13-2022 09:28-0400 Heart rate 99 /min Medina Cabrera APRN.LICENSED PSYCHOLOGIST DIRECTOR Work Phone: [facility] 12-13-2022 09:28-0400 Respiratory rate 20 /min Medina Cabrera APRN.LICENSED PSYCHOLOGIST DIRECTOR Work Phone: [facility] 12-13-2022 09:28-0400 SaO2% (BldA) [Mass fraction] 94 % Medina Cabrera APRN.LICENSED PSYCHOLOGIST DIRECTOR Work Phone: [facility] 12-13-2022 09:28-0400 Systolic blood pressure 152 mm[Hg] Medina Cabrera APRN.LICENSED PSYCHOLOGIST DIRECTOR Work Phone: [facility] 10-21-2022 09:07-0400 Body temperature 98.4 [degF] Krislyn Aberegg PA Work Phone: [facility] 10-21-2022 09:07-0400 Body weight 91.63 kg Krislyn Aberegg PA Work Phone: [facility] 10-21-2022 09:07-0400 Diastolic blood pressure 72 mm[Hg] Krislyn Aberegg PA Work Phone: [facility] 10-21-2022 09:07-0400 Heart rate 84 /min Krislyn Aberegg PA Work Phone: [facility] 10-21-2022 09:07-0400 Respiratory rate 16 /min Krislyn Aberegg PA Work Phone: [facility] 10-21-2022 09:07-0400 SaO2% (BldA) [Mass fraction] 95 % Krislyn Aberegg PA Work Phone: [facility] 10-21-2022 09:07-0400 Systolic blood pressure 122 mm[Hg] Praveenluis angelmoi Aguirre PA Work Phone: [facility] 07-10-2022 09:04-0400 Body temperature 97.39 [degF] Shar Blood MD Work Phone: [facility] 07-10-2022 09:04-0400 Body weight 90.27 kg Shar Blood MD Work Phone: [facility] 07-10-2022 09:04-0400 Diastolic blood pressure 72 mm[Hg] Shar Blood MD Work Phone: [facility] 07-10-2022 09:04-0400 Heart rate 100 /min Shar Blood MD Work Phone: [facility] 07-10-2022 09:04-0400 Respiratory rate 18 /min Shar Blood MD Work Phone: [facility] 07-10-2022 09:04-0400 SaO2% (BldA) [Mass fraction] 95 % Shar Blood MD Work Phone: [facility] 07-10-2022 09:04-0400 Systolic blood pressure 122 mm[Hg] Shar Blood MD Work Phone: [facility] 06-29-2022 12:04-0400 Body temperature 98.01 [degF] Nila Bolton-Osman SHOVEL OPERATOR.LICENSED PSYCHOLOGIST DIRECTOR Work Phone: [facility] 06-29-2022 12:04-0400 Body weight 91.72 kg Nila Bolton-Osman SHOVEL OPERATOR.LICENSED PSYCHOLOGIST DIRECTOR Work Phone: [facility] 06-29-2022 12:04-0400 Diastolic blood pressure 78 mm[Hg] Nila Arriazaler-Osman SHOVEL OPERATOR.LICENSED PSYCHOLOGIST DIRECTOR Work Phone: [facility] 06-29-2022 12:04-0400 Heart rate 98 /min Nila Arriazaler-Osman SHOVEL OPERATOR.LICENSED PSYCHOLOGIST DIRECTOR Work Phone: [facility] 06-29-2022 12:04-0400 Respiratory rate 18 /min Nila Praisler-Wood SHOVEL OPERATOR.LICENSED PSYCHOLOGIST DIRECTOR Work Phone: [facility] 06-29-2022 12:04-0400 SaO2% (BldA) [Mass fraction] 99 % Nila Praisler-Wood SHOVEL OPERATOR.LICENSED PSYCHOLOGIST DIRECTOR Work Phone: [facility] 06-29-2022 12:04-0400 Systolic blood pressure 136 mm[Hg] Nila Praisler-Wood SHOVEL OPERATOR.LICENSED PSYCHOLOGIST DIRECTOR Work Phone: [facility] 06-24-2021 09:09-0400 Body temperature 97.9 [degF] Nila Praisler-Wood SHOVEL OPERATOR.LICENSED PSYCHOLOGIST DIRECTOR Work Phone: [facility] 06-24-2021 09:09-0400 Body weight 88.45 kg Nila Praisler-Wood SHOVEL OPERATOR.LICENSED PSYCHOLOGIST DIRECTOR Work Phone: [facility] 06-24-2021 09:09-0400 Diastolic blood pressure 82 mm[Hg] Nila Praisler-Wood SHOVEL OPERATOR.LICENSED PSYCHOLOGIST DIRECTOR Work Phone: [facility] 06-24-2021 09:09-0400 Heart rate 86 /min Nila Praisler-Wood SHOVEL OPERATOR.LICENSED PSYCHOLOGIST DIRECTOR Work Phone: [facility] 06-24-2021 09:09-0400 Respiratory rate 16 /min Nila Praisler-Wood SHOVEL OPERATOR.LICENSED PSYCHOLOGIST DIRECTOR Work Phone: [facility] 06-24-2021 09:09-0400 SaO2% (BldA) [Mass fraction] 98 % Nila Praisler-Wood SHOVEL OPERATOR.LICENSED PSYCHOLOGIST DIRECTOR Work Phone: [facility] 06-24-2021 09:09-0400 Systolic blood pressure 134 mm[Hg] Nila Praisler-Wood SHOVEL OPERATOR.LICENSED PSYCHOLOGIST DIRECTOR Work Phone: [facility] Encounters Encounter Date Encounter Type Care Provider Facility Start: 01-29-2023 Telephone encounter Shar Garcia MD Work Phone: [facility] Procedures Date Procedure Procedure Detail Performing Clinician Start: 01-28-2023 COVID & INFLUENZA A/ B NAAT, ROUTINE Dariusz Quintana APRN.LICENSED PSYCHOLOGIST DIRECTOR Work Phone: Start: 07-10-2022 Urnls dip stick/tabl et rgnt auto w/o microscopy Esme Davis PA-C Work Phone: Start: 06-29-2022 Urnls dip stick/tabl et rgnt auto w/o microscopy Medina Cabrera APRN.LICENSED PSYCHOLOGIST DIRECTOR Work Phone: Start: 06-24-2021 Urnls dip stick/tabl et rgnt auto w/o microscopy [facility] Provider Plan of Treatment Date Care Activity Detail Author Start: 12-13-2022 End: 12-27-2022 COVID & INFLUENZA A/B & RSV NAAT, ROUTINE [facility] Work Phone: Immunizations Immunization Date Immunization Notes Care Provider Isreal iqbal 02-22-2022 influenza virus vacc ine, unspecified formulation Medina Cabrera APRN.LICENSED PSYCHOLOGIST DIRECTOR Work Phone: [facility] Payers Date Payer Category Payer Unknown [employer]IMETIME [employer] O POS [id number] 2018-Present [phone] [address] [place] [address] O [id number] 2018 Unknown PRIMETIME PRIMET [employer] HMO POS [id number] 2018-Present [phone] [address] [place] [address] O [id number] 2018 Unknown [id number] Social History Date Type Detail Facility Tobacco smoking stat [facility] Never smoked tobacco [facility] Start: 06-24-2021 End: 01-28-2023 Alcohol intake Not Asked [facility] Start: 1945 Sex Assigned At Not on file C [facility] Start: 06-14-2021 End: 06-24-2021 Exposure to SARS-CoV-2 (event) Not sure [facility] Work Phone: Start: 03-03-2020 End: 10-21-2022 History of Social function [facility] Start: 03-03-2020 End: 10-21-2022 Tobacco use panel [facility] National Score (1-10 0), lower number is lower risk Not on file [facility] Clinical Notes 06-24-2021 to 01-29-2023 Telephone Encounter - Roshni Reid MA - 01/29/2023 11:09 AM ESTTelephone Encounter - Medina Cabrera APRN.CNP - 01/29/2023 10:28 AM Dariusz Benites APRN.CNP - 01/28/2023 11:03 AM EST Note Date & Type Note Facility 01-29-2023 Miscellaneous Notes Duplicate encounter, patient already notified. Rohsni Reid MA Patient is positive for COVID. Should quarantine for 5 days and should mask for other 5 days patient is negative for flu and RSV. Patient does qualify for antiviral if she would like to pursue that avenue she should contact her primary care. documented in this encounter [facility] 01-29-2023 Miscellaneous Notes Patient notified of results, verbalized understanding of instructions given. Roshni Reid MA COVID test was positive. She may call pcp to discuss treatment. Stay home for 5 days from symptom onset. After 5 days, you can leave your house if you have not had a fever in the last 24 hours. Continue to wear a mask around others for 5 additional days. If you have a fever, continue to stay home until your fever resolves. Treat with supportive care such as cough medicine, cold medicine, and pain relievers. Follow up with worsening symptoms; in the ER if severe. documented in this encounter [facility] 01-28-2023 Note HNO ID: [id number] Author: Dariusz Quintana APRN.LICENSED PSYCHOLOGIST DIRECTOR Service: ? Author Type: Nurse Practitioner Type: Progress Notes Filed: 01/28/2023 11:09 AM Note Text: Subjective HPI HPI Alexandria Mcrae is a 77 year old female who presents today for CC of cough, congestion, chills. This started 1 day ago. Has tried otc medication for relief. Symptoms are worsened by nothing. Risk factors recent covid exposure. nonsmoker .Patient presents with: Fever: Cough, congestion, runny nose chills, x 1 day PAST MEDICAL HISTORY Diagnosis Date Hypertension Psoriasis Recurrent UTI PAST SURGICAL HISTORY Procedure Laterality Date HYSTERECTOMY HX ALLERGIES Patient has no known allergies. MEDICATIONS estradiol (ESTRACE) 0.01 % (0.1 mg/gram) vaginal cream Insert 1 gram vaginally three times a week before bed. secukinumab (COSENTYX, 2 SYRINGES, SUBCUTANEOUS) Inject subcutaneously. amLODIPine (NORVASC) 10 mg tablet Take 1 tablet by mouth once daily. lisinopril (ZESTRIL) 10 mg tablet Take 1 tablet by mouth once daily. benzonatate (TESSALON PERLE) 100 mg capsule Take 2 capsules by mouth three times a day as needed. No family history on file. Social History Tobacco Use Smoking status: Never Smokeless tobacco: Never Review of Systems Constitutional: Negative for fever. HENT: Positive for congestion. Negative for ear pain, nosebleeds and sore throat. Respiratory: Positive for cough. Negative for shortness of breath and wheezing. Musculoskeletal: Negative for neck pain. Objective Blood pressure 153/80, pulse 88, temperature 37.5 ?C (99.5 ?F), resp. rate 20, weight 93.4 kg (206 lb), SpO2 96 %. Physical Exam Constitutional: General: She is not in acute distress. Appearance: She is not toxic-appearing or diaphoretic. HENT: Head: Normocephalic and atraumatic. Cardiovascular: Rate and Rhythm: Normal rate and regular rhythm. Heart sounds: Normal heart sounds, S1 normal and S2 normal. Pulmonary: Effort: Pulmonary effort is normal. Breath sounds: Normal breath sounds. Lymphadenopathy: Cervical: No cervical adenopathy. Right cervical: No superficial cervical adenopathy. Left cervical: No superficial cervical adenopathy. Neurological: Mental Status: She is alert and oriented to person, place, and time. Gait: Gait is intact. ASSESSMENT/PLAN: 1. Suspected COVID-19 virus infection - ICD9: V01.79, ICD10: Z20.822 If positive, advised to call pcp tomorrow to discuss treatment. Discussed quarantine, social distancing otc medications discussed Push fluids -If you experience chest pain/shortness of breath go to ER - COVID AND INFLUENZA A/B NAAT, ROUTINE - BENZONATATE 100 MG CAPSULE Dariusz Quintana APRN.LICENSED PSYCHOLOGIST DIRECTOR [facility] 01-28-2023 History of Presen t illness Narrative Subjective HPI HPI Alexandria Mcrae is a 77 year old female who presents today for CC of cough, congestion, chills. This started 1 day ago. Has tried otc medication for relief. Symptoms are worsened by nothing. Risk factors recent covid exposure. nonsmoker .Patient presents with: Fever: Cough, congestion, runny nose chills, x 1 day PAST MEDICAL HISTORY Diagnosis Date Hypertension Psoriasis Recurrent UTI PAST SURGICAL HISTORY Procedure Laterality Date HYSTERECTOMY HX ALLERGIES Patient has no known allergies. MEDICATIONS estradiol (ESTRACE) 0.01 % (0.1 mg/gram) vaginal cream Insert 1 gram vaginally three times a week before bed. secukinumab (COSENTYX, 2 SYRINGES, SUBCUTANEOUS) Inject subcutaneously. amLODIPine (NORVASC) 10 mg tablet Take 1 tablet by mouth once daily. lisinopril (ZESTRIL) 10 mg tablet Take 1 tablet by mouth once daily. benzonatate (TESSALON PERLE) 100 mg capsule Take 2 capsules by mouth three times a day as needed. No family history on file. Social History Tobacco Use Smoking status: Never Smokeless tobacco: Never Review of Systems Constitutional: Negative for fever. HENT: Positive for congestion. Negative for ear pain, nosebleeds and sore throat. Respiratory: Positive for cough. Negative for shortness of breath and wheezing. Musculoskeletal: Negative for neck pain. Objective Blood pressure 153/80, pulse 88, temperature 37.5 C (99.5 F), resp. rate 20, weight 93.4 kg (206 lb), SpO2 96 %. Physical Exam Constitutional: General: She is not in acute distress. Appearance: She is not toxic-appearing or diaphoretic. HENT: Head: Normocephalic and atraumatic. Cardiovascular: Rate and Rhythm: Normal rate and regular rhythm. Heart sounds: Normal heart sounds, S1 normal and S2 normal. Pulmonary: Effort: Pulmonary effort is normal. Breath sounds: Normal breath sounds. Lymphadenopathy: Cervical: No cervical adenopathy. Right cervical: No superficial cervical adenopathy. Left cervical: No superficial cervical adenopathy. Neurological: Mental Status: She is alert and oriented to person, place, and time. Gait: Gait is intact. ASSESSMENT/PLAN: 1. Suspected COVID-19 virus infection - ICD9: V01.79, ICD10: Z20.822 If positive, advised to call pcp tomorrow to discuss treatment. Discussed quarantine, social distancing otc medications discussed Push fluids -If you experience chest pain/shortness of breath go to ER - COVID & INFLUENZA A/B NAAT, ROUTINE - BENZONATATE 100 MG CAPSULE Dariusz Quintana APRN.LICENSED PSYCHOLOGIST DIRECTOR documented in this encounter [facility] 01-28-2023 Instructions Dariusz Quintana APRN.LICENSED PSYCHOLOGIST DIRECTOR - 01/28/2023 10:56 AM EST How to Manage Common Symptoms Associated with COVID for Adults Fever- Fever is a temperature over 100.4 F and can occur when the body is fighting an infection. To help treat a fever: Drink plenty of fluids and stay well hydrated. Eat small amounts of easy to digest food. Rest. Your body needs rest to recover, but getting up and moving around the house frequently is a good idea. You should try to continue doing your normal daily activities (bathing, toileting, grooming, cooking), though you will probably feel tired, and need to rest often. Avoid any heavy activity or exercise, as this will increase your body temperature. Dress in light clothing and stay covered in a light sheet. Keep the room temperature cool. Take a slightly warm (not cold or cool) bath, or apply damp washcloths to the forehead and wrists. Cough- Cough is a common symptom associated with COVID and can be bothersome. To help treat a cough: Stay well hydrated. Try warm water or tea with lemon and/or honey to help soothe the cough. Use a humidifier to add moisture to the air. Try a product with menthol, like a cough drop or a rub for your chest such as Vicks, which can help reduce cough. Try cough drops. Avoid smoking and other strong odors or perfumes. Try breathing exercises to keep your lungs open and clear. Take a big deep breath through your nose and hold for 5 seconds before slowly releasing. Repeat frequently, while you are awake. Congestion- Runny nose or nasal congestion can occur with COVID. Treatment can help relieve symptoms: Try OTC nasal saline spray, or nasal saline rinse to relieve mucus congestion. Nasal strips can help keep nasal passages open, to increase airflow. Elevating your head with an extra pillow in bed can help reduce congestion. Using a humidifier can increase moisture in the air, and make breathing easier. Sore Throat- Another common symptom with COVID, can be managed at home by: Stay well hydrated. Gargle with salt water - mix teaspoon salt with 1 cup of warm water and gargle. This helps to loosen mucus in the back of the throat and may reduce discomfort. Try ice chips, popsicles or lozenges to soothe the throat. Nausea/Vomiting/Diarrhea- These are common symptoms, and staying hydrated is most important. If you are nauseous or vomiting, start with small sips of water every 10-15 minutes and increase as tolerated. You can try sucking an ice cube too. If tolerating, you can try pedialyte or Gatorade, or flat sprite or julianne-drake. Start slowly and increase as you are able to. Instead of meals, try smaller, more frequent snacks. Try eating bland foods like crackers, toast, rice, and applesauce. Avoid spicy, greasy or fried foods and dairy containing foods. Even if you aren't feeling hungry due to lack of smell or taste, it is important to try to take in some food when you are able. After drinking and eating, rest in an upright position for up to two hours as needed to help decrease nauseous feelings. Try closing your eyes, avoid moving and watching TV. Avoid strong odors that can make you feel more nauseated. When to seek emergency medical attention Look for emergency warning signs for COVID-19. If having any of these symptoms, seek emergency medical care immediately: Trouble breathing Persistent pain or pressure in the chest New confusion Inability to wake or stay awake Bluish lips or face *This list is not all possible symptoms. Please call your medical provider for any other symptoms that are severe or concerning to you. documented in this encounter [facility] 12-14-2022 Miscellaneous Notes Patient notified.Myrtle Calles LPN Please notify of negative influenza, rsv, and covid test. Continue comfort measures for symptoms as you would for a cold. Any worsening symptoms follow up with PCP or ER. Radha Fernández APRN.SHUN documented in this encounter [facility] 12-13-2022 Note HNO ID: [id number] Author: Medina Cabrera APRN.CNP Service: ? Author Type: Nurse Practitioner Type: Progress Notes Filed: 12/13/2022 9:51 AM Note Text: CC: Patient presents with: Cough: Chest congestion, PARKER, left ear pain x 2 days HPI: Alexandria Mcrae is a 77 year old female who presents to the office with complaint of chest congestion, cough, nonproductive, sinus symptoms, and ear symptoms for a few days. Symptoms are staying the same. Associated symptoms includes headache. Denies fever, nausea, vomiting , and diarrhea. Treatments tried include nothing so far. with no relief of symptoms. Sick contacts: unknown. History of asthma, frequent episodes of bronchitis, chronic bronchitis, bronchiectasis or COPD: No Smoker: No Seasonal/environmental allergies: No The ROS is otherwise negative. The patient's pmh, medications, allergies, and past visits are reviewed. PHYSICAL EXAM: BP 152/86 Pulse 99 Temp 37.6 ?C (99.6 ?F) Resp 20 Wt 91.8 kg (202 lb 6.4 oz) SpO2 94% General appearance: alert, cooperative, pleasant, in no acute distress Head: Normocephalic Eyes: EOM's intact, conjunctiva pink and moist, no icterus, sclera white, non-injected Ears: Right ear: External ear/canal- Normal, TM - clear with good landmarks. Left ear: External ear/canal- Normal, TM - clear with good landmarks Heart: Negative. RRR without obvious murmur, gallop, or rubs. No ectopy. Lungs: clear to auscultation, without rales or wheeze, good air exchange PAST MEDICAL HISTORY Diagnosis Date Hypertension Psoriasis Recurrent UTI PAST SURGICAL HISTORY Procedure Laterality Date HYSTERECTOMY HX ALLERGIES Patient has no known allergies. MEDICATIONS estradiol (ESTRACE) 0.01 % (0.1 mg/gram) vaginal cream Insert 1 gram vaginally three times a week before bed. secukinumab (COSENTYX, 2 SYRINGES, SUBCUTANEOUS) Inject subcutaneously. amLODIPine (NORVASC) 10 mg tablet Take 1 tablet by mouth once daily. lisinopril (ZESTRIL) 10 mg tablet Take 1 tablet by mouth once daily. benzonatate (TESSALON PERLES) 100 mg capsule Take 1 capsule by mouth three times daily as needed for up to 7 days. No family history on file. Social History Tobacco Use Smoking status: Never Smokeless tobacco: Never ASSESSMENT/PLAN: 1. URI, acute - ICD9: 465.9, ICD10: J06.9 - COVID AND INFLUENZA A/B AND RSV NAAT, ROUTINE - BENZONATATE 100 MG CAPSULE Prescription instructions reviewed with patient as applicable. Potential red flag symptoms discussed with the patient. Reviewed appropriate action plan to take if red flag symptoms occur. Patient agreeable to treatment plan. Medina Cabrera APRN.[facility] 12-13-2022 History of Presen t illness Narrative CC: Patient presents with: Cough: Chest congestion, PARKER, left ear pain x 2 days HPI: Alexandria Mcrae is a 77 year old female who presents to the office with complaint of chest congestion, cough, nonproductive, sinus symptoms, and ear symptoms for a few days. Symptoms are staying the same. Associated symptoms includes headache. Denies fever, nausea, vomiting , and diarrhea. Treatments tried include nothing so far. with no relief of symptoms. Sick contacts: unknown. History of asthma, frequent episodes of bronchitis, chronic bronchitis, bronchiectasis or COPD: No Smoker: No Seasonal/environmental allergies: No The ROS is otherwise negative. The patient's pmh, medications, allergies, and past visits are reviewed. PHYSICAL EXAM: BP 152/86 Pulse 99 Temp 37.6 C (99.6 F) Resp 20 Wt 91.8 kg (202 lb 6.4 oz) SpO2 94% General appearance: alert, cooperative, pleasant, in no acute distress Head: Normocephalic Eyes: EOM's intact, conjunctiva pink and moist, no icterus, sclera white, non-injected Ears: Right ear: External ear/canal- Normal, TM - clear with good landmarks. Left ear: External ear/canal- Normal, TM - clear with good landmarks Heart: Negative. RRR without obvious murmur, gallop, or rubs. No ectopy. Lungs: clear to auscultation, without rales or wheeze, good air exchange PAST MEDICAL HISTORY Diagnosis Date Hypertension Psoriasis Recurrent UTI PAST SURGICAL HISTORY Procedure Laterality Date HYSTERECTOMY HX ALLERGIES Patient has no known allergies. MEDICATIONS estradiol (ESTRACE) 0.01 % (0.1 mg/gram) vaginal cream Insert 1 gram vaginally three times a week before bed. secukinumab (COSENTYX, 2 SYRINGES, SUBCUTANEOUS) Inject subcutaneously. amLODIPine (NORVASC) 10 mg tablet Take 1 tablet by mouth once daily. lisinopril (ZESTRIL) 10 mg tablet Take 1 tablet by mouth once daily. benzonatate (TESSALON PERLES) 100 mg capsule Take 1 capsule by mouth three times daily as needed for up to 7 days. No family history on file. Social History Tobacco Use Smoking status: Never Smokeless tobacco: Never ASSESSMENT/PLAN: 1. URI, acute - ICD9: 465.9, ICD10: J06.9 - COVID & INFLUENZA A/B & RSV NAAT, ROUTINE - BENZONATATE 100 MG CAPSULE Prescription instructions reviewed with patient as applicable. Potential red flag symptoms discussed with the patient. Reviewed appropriate action plan to take if red flag symptoms occur. Patient agreeable to treatment plan. Medina Cabrera APRN.CNP documented in this encounter [facility] 12-03-2022 Note HNO ID: [id number] Author: Nakul Martinez APRN.CNP Service: ? Author Type: Nurse Practitioner Type: Progress Notes Filed: 12/03/2022 1:50 PM Note Text: Nontoxic-appearing female presents urgent care chief complaint pain in back of right leg. Patient states has noticed increased pain behind her right knee in the last few days. Area feels warm and is mildly swollen. Presents today for evaluation. On examination warmth redness and tenderness was noted with palpation to right popliteal area. No imaging was available today. I recommended patient be seen in ED to rule out possible DVT. Patient verbalized understand agrees with plan of care. Nakul Martinez APRN.CNP [facility] 12-03-2022 History of Presen t illness Narrative Nontoxic-appearing female presents urgent care chief complaint pain in back of right leg. Patient states has noticed increased pain behind her right knee in the last few days. Area feels warm and is mildly swollen. Presents today for evaluation. On examination warmth redness and tenderness was noted with palpation to right popliteal area. No imaging was available today. I recommended patient be seen in ED to rule out possible DVT. Patient verbalized understand agrees with plan of care. Nakul Martinez APRN.SHUN documented in this encounter [facility] 10-21-2022 Note HNO ID: [id number] Author: Sowmya Aguirre PA Service: ? Author Type: Physician Cloth Shrinker Type: Progress Notes Filed: 10/21/2022 9:19 AM Note Text: This note was created using [employer]. Jaxson Mcrae is a 77 year old female. HPI 77-year-old female presents for clogged ears. Patient states that her ears have felt clogged for a month. She states she has history of earwax issues. She states that they itch somewhat. She tried to clean them out herself, but was unable to do so. She has not been using any drops in the ears. She has used Q-tips. No fevers, cough, congestion or URI symptoms. No other complaint. PAST MEDICAL HISTORY Diagnosis Date Hypertension Psoriasis Recurrent UTI PAST SURGICAL HISTORY Procedure Laterality Date HYSTERECTOMY HX ALLERGIES Patient has no known allergies. MEDICATIONS estradiol (ESTRACE) 0.01 % (0.1 mg/gram) vaginal cream Insert 1 gram vaginally three times a week before bed. secukinumab (COSENTYX, 2 SYRINGES, SUBCUTANEOUS) Inject subcutaneously. amLODIPine (NORVASC) 10 mg tablet Take 1 tablet by mouth once daily. lisinopril (ZESTRIL) 10 mg tablet Take 1 tablet by mouth once daily. No family history on file. Social History Tobacco Use Smoking status: Never Smokeless tobacco: Never Review of Systems Constitutional: Negative for chills and fever. HENT: Negative for congestion, ear pain and sore throat. + Ears clogged Respiratory: Negative for cough and shortness of breath. Cardiovascular: Negative for chest pain. Gastrointestinal: Negative for diarrhea and vomiting. Objective BP 122/72 Pulse 84 Temp 36.9 ?C (98.4 ?F) Resp 16 Wt 91.6 kg (202 lb) SpO2 95% Physical Exam Vitals and nursing note reviewed. Constitutional: General: She is not in acute distress. Appearance: Normal appearance. She is not toxic-appearing. HENT: Right Ear: Tympanic membrane and ear canal normal. There is impacted cerumen. Left Ear: Tympanic membrane and ear canal normal. There is impacted cerumen. Ears: Comments: Cerumen impaction of bilateral ears, left worse than right. Able to partially visualize right TM which is normal. Procedure: Lavage completed by JEANMARIE. Post procedure: TMs normal bilaterally. No bleeding. No signs of infection. Nose: Nose normal. Mouth/Throat: Mouth: Mucous membranes are moist. Pharynx: No oropharyngeal exudate or posterior oropharyngeal erythema. Eyes: Conjunctiva/sclera: Conjunctivae normal. Cardiovascular: Rate and Rhythm: Normal rate and regular rhythm. Pulmonary: Effort: Pulmonary effort is normal. Breath sounds: Normal breath sounds. Neurological: Mental Status: She is alert. Assessment and Plan ASSESSMENT/PLAN: 1. Bilateral impacted cerumen - ICD9: 380.4, ICD10: H61.23 - AMBULATORY EAR LAVAGE/IRRIGATION - Procedure: Lavage completed by MA. - Post procedure: TMs normal bilaterally. No bleeding. No signs of infection. Diagnosis and treatment plan were discussed and questions were answered to the patient's satisfaction. Pt acknowledged understanding of concepts and follow up plan. Specific signs and symptoms that would indicate the need for higher level of care were discussed in detail warranting prompt ER evaluation. TORY Casarez [facility] 10-21-2022 Nurse Note Ambulatory Ear Lavage Pre-treatment: Warm water Treatment: Both ears Equipment and Irrigation solution and Volume used: Single use syringe with single use irrigation tip Return flow appearance: Brown Patient tolerated procedure: yes Tympanic membrane assessment: Tympanic membrane assessed by LIP pre and post procedure Teresa Sutton documented in this encounter [facility] 10-21-2022 History of Presen t illness Narrative This note was created using [employer]. Jaxson Mcrae is a 77 year old female. HPI 77-year-old female presents for clogged ears. Patient states that her ears have felt clogged for a month. She states she has history of earwax issues. She states that they itch somewhat. She tried to clean them out herself, but was unable to do so. She has not been using any drops in the ears. She has used Q-tips. No fevers, cough, congestion or URI symptoms. No other complaint. PAST MEDICAL HISTORY Diagnosis Date Hypertension Psoriasis Recurrent UTI PAST SURGICAL HISTORY Procedure Laterality Date HYSTERECTOMY HX ALLERGIES Patient has no known allergies. MEDICATIONS estradiol (ESTRACE) 0.01 % (0.1 mg/gram) vaginal cream Insert 1 gram vaginally three times a week before bed. secukinumab (COSENTYX, 2 SYRINGES, SUBCUTANEOUS) Inject subcutaneously. amLODIPine (NORVASC) 10 mg tablet Take 1 tablet by mouth once daily. lisinopril (ZESTRIL) 10 mg tablet Take 1 tablet by mouth once daily. No family history on file. Social History Tobacco Use Smoking status: Never Smokeless tobacco: Never Review of Systems Constitutional: Negative for chills and fever. HENT: Negative for congestion, ear pain and sore throat. + Ears clogged Respiratory: Negative for cough and shortness of breath. Cardiovascular: Negative for chest pain. Gastrointestinal: Negative for diarrhea and vomiting. Objective BP 122/72 Pulse 84 Temp 36.9 C (98.4 F) Resp 16 Wt 91.6 kg (202 lb) SpO2 95% Physical Exam Vitals and nursing note reviewed. Constitutional: General: She is not in acute distress. Appearance: Normal appearance. She is not toxic-appearing. HENT: Right Ear: Tympanic membrane and ear canal normal. There is impacted cerumen. Left Ear: Tympanic membrane and ear canal normal. There is impacted cerumen. Ears: Comments: Cerumen impaction of bilateral ears, left worse than right. Able to partially visualize right TM which is normal. Procedure: Lavage completed by MA. Post procedure: TMs normal bilaterally. No bleeding. No signs of infection. Nose: Nose normal. Mouth/Throat: Mouth: Mucous membranes are moist. Pharynx: No oropharyngeal exudate or posterior oropharyngeal erythema. Eyes: Conjunctiva/sclera: Conjunctivae normal. Cardiovascular: Rate and Rhythm: Normal rate and regular rhythm. Pulmonary: Effort: Pulmonary effort is normal. Breath sounds: Normal breath sounds. Neurological: Mental Status: She is alert. Assessment and Plan ASSESSMENT/PLAN: 1. Bilateral impacted cerumen - ICD9: 380.4, ICD10: H61.23 - AMBULATORY EAR LAVAGE/IRRIGATION - Procedure: Lavage completed by MA. - Post procedure: TMs normal bilaterally. No bleeding. No signs of infection. Diagnosis and treatment plan were discussed and questions were answered to the patient's satisfaction. Pt acknowledged understanding of concepts and follow up plan. Specific signs and symptoms that would indicate the need for higher level of care were discussed in detail warranting prompt ER evaluation. TORY Casarez documented in this encounter [facility] 07-10-2022 Note HNO ID: [id number] Author: Shar Blood MD Service: ? Author Type: Physician Type: Progress Notes Filed: 07/10/2022 9:28 AM Note Text: Patient presents with: Urinary Problem: burning with urination HPI: Symptoms started overnight. Dysuria: Yes Frequency: Yes Hematuria: No Nausea: a littel Fever or chills: chills Back pain: midline low back Abdominal pain: No Prior UTI: Yes. Culture 06/29/22 grew 100k E coli sensitive to keflex prescribed. Personal history of kidney stones: No Follows with urology for UTIs. PAST MEDICAL HISTORY Diagnosis Date Hypertension Psoriasis Recurrent UTI PAST SURGICAL HISTORY Procedure Laterality Date HYSTERECTOMY HX MEDICATIONS: Current Outpatient Medications Medication Sig estradiol (ESTRACE) 0.01 % (0.1 mg/gram) vaginal cream Insert 1 gram vaginally three times a week before bed. secukinumab (COSENTYX, 2 SYRINGES, SUBCUTANEOUS) Inject subcutaneously. amLODIPine (NORVASC) 10 mg tablet Take 1 tablet by mouth once daily. lisinopril (ZESTRIL) 10 mg tablet Take 1 tablet by mouth once daily. cephALEXin (KEFLEX) 500 mg capsule Take 1 capsule by mouth twice daily for 7 days. No current facility-administered medications for this visit. ALLERGIES: ALLERGIES No Known Allergies VITALS: BP 122/72 Pulse 100 Temp 36.3 ?C (97.4 ?F) Resp 18 Wt 90.3 kg (199 lb) SpO2 95% PHYSICAL EXAM: GEN: NAD HEENT: EOMI, conjunctiva clear, HEART: regular rate and rhythm, no murmurs LUNGS: clear to auscultation, no wheezes or crackles, no increased WOB ABDOMEN: Soft, nondistended, no masses, no suprapubic tenderness BACK: left CVA tenderness ASSESSMENT/PLAN: 1. Burning with urination - ICD9: 788.1, ICD10: R30.0 - UA DIP, URINE (POC) - positive for AZO discoloration. Probable UTI. - URINE CULTURE - CEPHALEXIN 500 MG CAPSULE Shar Blood MD [facility] 07-10-2022 History of Presen t illness Narrative Patient presents with: Urinary Problem: burning with urination HPI: Symptoms started overnight. Dysuria: Yes Frequency: Yes Hematuria: No Nausea: a littel Fever or chills: chills Back pain: midline low back Abdominal pain: No Prior UTI: Yes. Culture 06/29/22 grew 100k E coli sensitive to keflex prescribed. Personal history of kidney stones: No Follows with urology for UTIs. PAST MEDICAL HISTORY Diagnosis Date Hypertension Psoriasis Recurrent UTI PAST SURGICAL HISTORY Procedure Laterality Date HYSTERECTOMY HX MEDICATIONS: Current Outpatient Medications Medication Sig estradiol (ESTRACE) 0.01 % (0.1 mg/gram) vaginal cream Insert 1 gram vaginally three times a week before bed. secukinumab (COSENTYX, 2 SYRINGES, SUBCUTANEOUS) Inject subcutaneously. amLODIPine (NORVASC) 10 mg tablet Take 1 tablet by mouth once daily. lisinopril (ZESTRIL) 10 mg tablet Take 1 tablet by mouth once daily. cephALEXin (KEFLEX) 500 mg capsule Take 1 capsule by mouth twice daily for 7 days. No current facility-administered medications for this visit. ALLERGIES: ALLERGIES No Known Allergies VITALS: BP 122/72 Pulse 100 Temp 36.3 C (97.4 F) Resp 18 Wt 90.3 kg (199 lb) SpO2 95% PHYSICAL EXAM: GEN: NAD HEENT: EOMI, conjunctiva clear, HEART: regular rate and rhythm, no murmurs LUNGS: clear to auscultation, no wheezes or crackles, no increased WOB ABDOMEN: Soft, nondistended, no masses, no suprapubic tenderness BACK: left CVA tenderness ASSESSMENT/PLAN: 1. Burning with urination - ICD9: 788.1, ICD10: R30.0 - UA DIP, URINE (POC) - positive for AZO discoloration. Probable UTI. - URINE CULTURE - CEPHALEXIN 500 MG CAPSULE Shar Blood MD documented in this encounter [facility] 06-29-2022 Note HNO ID: [id number] Author: Nila Schultz APRN.LICENSED PSYCHOLOGIST DIRECTOR Service: ? Author Type: Nurse Practitioner Type: Progress Notes Filed: 06/29/2022 2:17 PM Note Text: This note was created using [employer]. Jaxson Mcrae is a 77 year old female who presetns with one day of dysuria and pelvic pressure. Reports symptoms have worsened since onset. Denies fever, chills, sweats. No treatments tried at home. Patient is not sexually active and denies vaginal symptoms or pelvic pain. Patient unsure of her last UTI, thinks it has been over a year. Is followed by urology but next appointment not for a few more months. Review of Systems Constitutional: Negative for chills, diaphoresis, fatigue and fever. Respiratory: Negative for cough. Cardiovascular: Negative for chest pain. Genitourinary: Positive for dysuria, frequency and urgency. Negative for difficulty urinating, flank pain, hematuria, vaginal bleeding, vaginal discharge and vaginal pain. Musculoskeletal: Positive for back pain (low, near sacrum). Neurological: Negative for numbness. History reviewed. No pertinent past medical history. No past surgical history on file. ALLERGIES Patient has no known allergies. MEDICATIONS amLODIPine (NORVASC) 10 mg tablet Take 1 tablet by mouth once daily. lisinopril (ZESTRIL) 10 mg tablet Take 1 tablet by mouth once daily. cephALEXin (KEFLEX) 500 mg capsule Take 1 capsule by mouth twice daily for 7 days. spironolactone (ALDACTONE) 50 mg tablet Take 1 tablet by mouth once daily. No family history on file. Social History Tobacco Use Smoking status: Never Smokeless tobacco: Never Objective BP 136/78 Pulse 98 Temp 36.7 ?C (98 ?F) (Tympanic) Resp 18 Wt 91.7 kg (202 lb 3.2 oz) SpO2 99% Physical Exam Vitals reviewed. Constitutional: General: She is not in acute distress. Appearance: She is obese. She is not ill-appearing or diaphoretic. HENT: Head: Normocephalic and atraumatic. Cardiovascular: Rate and Rhythm: Normal rate and regular rhythm. Heart sounds: Normal heart sounds. Pulmonary: Effort: Pulmonary effort is normal. Breath sounds: Normal breath sounds. Abdominal: General: Bowel sounds are normal. There is no distension. Palpations: Abdomen is soft. Tenderness: There is no abdominal tenderness. Comments: Limited ability to assess for CVA tenderness due to patient's sensitivity to light touch on the back. Skin: General: Skin is warm and dry. Neurological: General: No focal deficit present. Mental Status: She is alert and oriented to person, place, and time. Assessment and Plan ASSESSMENT/PLAN: 1. Acute cystitis with hematuria - ICD9: 595.0, ICD10: N30.01 (primary diagnosis) - Urine sent for culture. If culture is negative, patient to follow up with urologist. - CEPHALEXIN 500 MG CAPSULE for 5 days. 2. Burning with urination - ICD9: 788.1, ICD10: R30.0 acute - UA positive for henrietta esterase (moderate), hematuria (large), and proteinuria (30mg/dl) - Send urine for culture - Begin treatment with Keflex 500mg BID for 5 days - Patient education for prevention given. Red flag s/sx reviewed. Patient to return for worsening symptoms or failure to resolve. - UA DIP, URINE (POC) - URINE CULTURE Ana Maria Farley APRN-student TEACHING PROVIDER (Physician/PA/SHOVEL OPERATOR) NOTE OF PERSONAL INVOLVEMENT IN CARE: I have personally seen and examined the patient and performed the medical decision-making components. I have reviewed the Advanced Practice Registered Nurse (SHOVEL OPERATOR) Student's documentation and verified the findings in the note as written. Any additions or changes are noted in bold/italics. Signature: Nila Schultz Date: 06/29/2022 Time: 2:17 PM [facility] 06-29-2022 Instructions Ana Maria Farley - 06/29/2022 12:51 PM EDT ASSESSMENT/PLAN: 1. Acute cystitis with hematuria - ICD9: 595.0, ICD10: N30.01 (primary diagnosis) - Urine sent for culture. If culture is negative, patient to follow up with urologist. - CEPHALEXIN 500 MG CAPSULE for 5 days. 2. Burning with urination - ICD9: 788.1, ICD10: R30.0 acute - UA positive for henrietta esterase (moderate), hematuria (large), and proteinuria (30mg/dl) - Send urine for culture - Begin treatment with Keflex 500mg BID for 5 days - Patient education for prevention given. Red flag s/sx reviewed. Patient to return for worsening symptoms or failure to resolve. - UA DIP, URINE (POC) - URINE CULTURE Ana Maria Farley APRN-student documented in this encounter [facility] 06-29-2022 History of Presen t illness Narrative This note was created using [employer]. Jaxson Mcrae is a 77 year old female who presetns with one day of dysuria and pelvic pressure. Reports symptoms have worsened since onset. Denies fever, chills, sweats. No treatments tried at home. Patient is not sexually active and denies vaginal symptoms or pelvic pain. Patient unsure of her last UTI, thinks it has been over a year. Is followed by urology but next appointment not for a few more months. Review of Systems Constitutional: Negative for chills, diaphoresis, fatigue and fever. Respiratory: Negative for cough. Cardiovascular: Negative for chest pain. Genitourinary: Positive for dysuria, frequency and urgency. Negative for difficulty urinating, flank pain, hematuria, vaginal bleeding, vaginal discharge and vaginal pain. Musculoskeletal: Positive for back pain (low, near sacrum). Neurological: Negative for numbness. History reviewed. No pertinent past medical history. No past surgical history on file. ALLERGIES Patient has no known allergies. MEDICATIONS amLODIPine (NORVASC) 10 mg tablet Take 1 tablet by mouth once daily. lisinopril (ZESTRIL) 10 mg tablet Take 1 tablet by mouth once daily. cephALEXin (KEFLEX) 500 mg capsule Take 1 capsule by mouth twice daily for 7 days. spironolactone (ALDACTONE) 50 mg tablet Take 1 tablet by mouth once daily. No family history on file. Social History Tobacco Use Smoking status: Never Smokeless tobacco: Never Objective BP 136/78 Pulse 98 Temp 36.7 C (98 F) (Tympanic) Resp 18 Wt 91.7 kg (202 lb 3.2 oz) SpO2 99% Physical Exam Vitals reviewed. Constitutional: General: She is not in acute distress. Appearance: She is obese. She is not ill-appearing or diaphoretic. HENT: Head: Normocephalic and atraumatic. Cardiovascular: Rate and Rhythm: Normal rate and regular rhythm. Heart sounds: Normal heart sounds. Pulmonary: Effort: Pulmonary effort is normal. Breath sounds: Normal breath sounds. Abdominal: General: Bowel sounds are normal. There is no distension. Palpations: Abdomen is soft. Tenderness: There is no abdominal tenderness. Comments: Limited ability to assess for CVA tenderness due to patient's sensitivity to light touch on the back. Skin: General: Skin is warm and dry. Neurological: General: No focal deficit present. Mental Status: She is alert and oriented to person, place, and time. Assessment and Plan ASSESSMENT/PLAN: 1. Acute cystitis with hematuria - ICD9: 595.0, ICD10: N30.01 (primary diagnosis) - Urine sent for culture. If culture is negative, patient to follow up with urologist. - CEPHALEXIN 500 MG CAPSULE for 5 days. 2. Burning with urination - ICD9: 788.1, ICD10: R30.0 acute - UA positive for henrietta esterase (moderate), hematuria (large), and proteinuria (30mg/dl) - Send urine for culture - Begin treatment with Keflex 500mg BID for 5 days - Patient education for prevention given. Red flag s/sx reviewed. Patient to return for worsening symptoms or failure to resolve. - UA DIP, URINE (POC) - URINE CULTURE Ana Maria Farley APRN-student TEACHING PROVIDER (Physician/PA/SHOVEL OPERATOR) NOTE OF PERSONAL INVOLVEMENT IN CARE: I have personally seen and examined the patient and performed the medical decision-making components. I have reviewed the Advanced Practice Registered Nurse (SHOVEL OPERATOR) Student's documentation and verified the findings in the note as written. Any additions or changes are noted in bold/italics. Signature: Nila Schultz Date: 06/29/2022 Time: 2:17 PM documented in this encounter [facility] 06-30-2021 Miscellaneous Notes Left message for pt to call back and schedule possibly in lyn with Justin Dominguez for recurrent uti documented in this encounter [facility] 06-24-2021 Instructions Abdi Quintanilla - 06/24/2021 9:29 AM EDT Patient Education for Female Urinary Tract Infections Possible complications: Pyelonehritis Renal abscess Expected course/prognosis: * symptoms resolve within 2-3 days after starting treatment in almost all patients * one-fourth of women with simple UTI experience a second UTI within 6 months, and half at some time during lifetime. * patients with multiple recurrent UTI and no underlying urinary tract abnormality may receive long-term prophylactic antibioitic treatment. Trimethoprim-sulfamethoxazole and nitrofurantoin common used. * women with frequent or intercourse-related UTI should empty bladder immediately before and following intercourse and consider postcoital antibiotic treament Instructions: * Maintain good hydration * Avoid sexual intercourse when symptoms present *Take antibiotic as directed * Return if symptoms not resolved or markedly improved within 48 hours * Return if fever, chills, or flank pain develop * If taking prophylactic antiobiotics, take at bedtime * Take showers instead of tub baths * Avoid feminine hygiene sprays and scented douches * Wipe urethra from front to back documented in this encounter [facility] 06-24-2021 History of Presen t illness Narrative Images from the original note were not included. This note was created using [employer]. Subjective Alexandria Mcrae is a 76 year old female who presents with urinary frequency, urgency, burning with urination, and mid-back pain x 1 day. Per patient, this is her third UTI since March 2021. Review of Systems Constitutional: Negative for chills, fatigue and fever. HENT: Negative. Eyes: Positive for redness. Scleral hemorrhage checked out by Optho Respiratory: Negative for cough and shortness of breath. Cardiovascular: Negative for chest pain and palpitations. Gastrointestinal: Negative for abdominal pain, constipation, diarrhea, nausea and vomiting. Genitourinary: Positive for dysuria, flank pain, frequency and urgency. Negative for decreased urine volume, difficulty urinating and hematuria. Musculoskeletal: Positive for back pain. Skin: Negative for color change. Neurological: Negative for syncope and headaches. Psychiatric/Behavioral: Negative for confusion. Objective BP 134/82 Pulse 86 Temp 36.6 C (97.9 F) Resp 16 Wt 88.5 kg (195 lb) SpO2 98% No past medical history on file. No past surgical history on file. ALLERGIES Patient has no known allergies. MEDICATIONS amLODIPine (NORVASC) 10 mg tablet Take 1 tablet by mouth once daily. lisinopril (PRINIVIL) 10 mg tablet Take 1 tablet by mouth once daily. ciprofloxacin HCl (CIPRO) 500 mg tablet Take 1 tablet by mouth twice daily for 7 days. spironolactone (ALDACTONE) 50 mg tablet Take 1 tablet by mouth once daily. No family history on file. Social History Tobacco Use Smoking status: Never Smoker Smokeless tobacco: Never Used Substance Use Topics Alcohol use: Not on file Drug use: Not on file Physical Exam Vitals reviewed. Constitutional: General: She is not in acute distress. Appearance: Normal appearance. She is not toxic-appearing or diaphoretic. HENT: Head: Normocephalic and atraumatic. Right Ear: External ear normal. Left Ear: External ear normal. Eyes: Extraocular Movements: Extraocular movements intact. Conjunctiva/sclera: Right eye: Hemorrhage present. Cardiovascular: Rate and Rhythm: Normal rate. Rhythm irregular. Pulses: Normal pulses. Heart sounds: Normal heart sounds. No murmur heard. Pulmonary: Effort: Pulmonary effort is normal. No respiratory distress. Breath sounds: Normal breath sounds. Abdominal: General: Abdomen is flat. Palpations: Abdomen is soft. Tenderness: There is no abdominal tenderness. There is left CVA tenderness. There is no right CVA tenderness. Musculoskeletal: General: Normal range of motion. Cervical back: Normal range of motion and neck supple. Skin: General: Skin is warm and dry. Capillary Refill: Capillary refill takes less than 2 seconds. Coloration: Skin is not jaundiced. Neurological: General: No focal deficit present. Mental Status: She is alert and oriented to person, place, and time. Mental status is at baseline. Psychiatric: Mood and Affect: Mood normal. Behavior: Behavior normal. Assessment and Plan ASSESSMENT/PLAN: 1. Recurrent UTI (urinary tract infection) - ICD9: 599.0, ICD10: N39.0 (primary diagnosis) recurrent - UA positive for henrietta esterase and hematuria - Begin treatment with Ciprofloxacin 500 mg BID for 7 days - Patient education for prevention given - UA DIP, URINE (POC) - CONSULT TO UROLOGY - CIPROFLOXACIN 500 MG TABLET 2. Irregular heartbeat - ICD9: 427.9, ICD10: I49.9 - follow up with PCP for arrhythmia evaluation 3. Subconjunctival hemorrhage of right eye - ICD9: 372.72, ICD10: H11.31 -continue with ophthalmology as needed Abdi Quintanilla - Follow-up with your PCP in 3-5 days if symptoms have not improved or sooner if symptoms worsen - Discussed red flags and need for immediate medical evaluation if any occur. - Discussed supportive care treatment with fluids, rest and analgesia. - Discussed expected course of illness TEACHING PROVIDER (Physician/PA/SHOVEL OPERATOR) NOTE OF PERSONAL INVOLVEMENT IN CARE: I have personally seen and examined the patient and performed the medical decision-making components. I have reviewed the Advanced Practice Registered Nurse (SHOVEL OPERATOR) Student's documentation and verified the findings in the note as written. Any additions or changes are noted in bold/italics. Signature: Nila Schultz Date: 06/24/2021 Time: 9:33 AM documented in this encounter [facility] documented [facility] this encounter [facility]* Diagnosis Acute cystitis with hematuria- Primary Acute cystitis Burning with urination Dysuria documented in this encounter [facility] note* Diagnosis Burning with urination- Primary Dysuria documented in this encounter [facility] note* Diagnosis Bilateral impacted cerumen- Primary Impacted cerumen documented in this encounter [facility] note* Diagnosis Procedure not carried out- Primary Procedure not carried out for other reasons documented in this encounter [facility] note* Diagnosis URI, acute- Primary Acute upper respiratory infections of unspecified site documented in this encounter [facility] note* Diagnosis Suspected COVID-19 virus infection- Primary documented in this encounter [facility] Reason for Referral Specialty Diagnoses / Procedures Referred By Robi reyes Referred To Contact Urology Diagnoses Recurrent UTI (urinary tract infection) Procedures CONSULT TO UROLOGY OFFICE/OUTPATIENT [facility] 60-74 MINUTES Nila Schultz APRN.LICENSED PSYCHOLOGIST DIRECTOR [id number] [place] [address] Referral ID Status Reason Start Date Expiration Date Visits Requested Visits Authorized [id number] Pending Review PCP Requested Referral 06/24/2021 06/24/2022 1 1 Summary Purpose Family History No Family History Records FoundNo Family History Records Found Advance Directives No Advanced Directives Records FoundNo Advanced Directives Records Found Health Concerns Infection Onset Date Last Indicated Resolved Time COVID-19 Rule-Out 12/13/2022 12/13/2022 Infection Onset Date Last Indicated Resolved Time COVID-19 Confirmed 01/28/2023 01/28/2023 Additional Source Comments Source Comments (unrecognize d section and content) In the event this informatio n is protected by the Federal Confidentiality of Alcohol and Drug Abuse Patient Records regulations: The Federal rules restrict any use of the information to criminally investigate or prosecute any alcohol or drug abuse patient.[facility] the event this information is protected by the Federal Confidentiality of Alcohol and Drug Abuse Patient Records regulations: The Federal rules restrict any use of the information to criminally investigate or prosecute any alcohol or drug abuse patient.[facility] Foundation[facility] the event this information is protected by the Federal Confidentiality of Alcohol and Drug Abuse Patient Records regulations: The Federal rules restrict any use of the information to criminally investigate or prosecute any alcohol or drug abuse patient.[facility] Foundation[facility] the event this information is protected by the Federal Confidentiality of Alcohol and Drug Abuse Patient Records regulations: The Federal rules restrict any use of the information to criminally investigate or prosecute any alcohol or drug abuse patient.[facility] Foundation[facility] the event this information is protected by the Federal Confidentiality of Alcohol and Drug Abuse Patient Records regulations: The Federal rules restrict any use of the information to criminally investigate or prosecute any alcohol or drug abuse patient.[facility] Foundation[facility] the event this information is protected by the Federal Confidentiality of Alcohol and Drug Abuse Patient Records regulations: The Federal rules restrict any use of the information to criminally investigate or prosecute any alcohol or drug abuse patient.[facility] Foundation[facility] the event this information is protected by the Federal Confidentiality of Alcohol and Drug Abuse Patient Records regulations: The Federal rules restrict any use of the information to criminally investigate or prosecute any alcohol or drug abuse patient.[facility] FoundationIn the event this information is protected by the Federal Confidentiality of Alcohol and Drug Abuse Patient Records regulations: The Federal rules restrict any use of the information to criminally investigate or prosecute any alcohol or drug abuse patient.[facility] Foundation[facility] the event this information is protected by the Federal Confidentiality of Alcohol and Drug Abuse Patient Records regulations: The Federal rules restrict any use of the information to criminally investigate or prosecute any alcohol or drug abuse patient.[facility] Foundation[facility] the event this information is protected by the Federal Confidentiality of Alcohol and Drug Abuse Patient Records regulations: The Federal rules restrict any use of the information to criminally investigate or prosecute any alcohol or drug abuse patient.[facility] FoundationIn the event this information is protected by the Federal Confidentiality of Alcohol and Drug Abuse Patient Records regulations: The Federal rules restrict any use of the information to criminally investigate or prosecute any alcohol or drug abuse patient.[facility] Reason for Visit (unrecogniz ed section and content) Reason Comments referral appointment Reason Comments burning with urination Burning, pressure and low back pain x 1 day Reason Comments Urinary Problem burning with urinati on Reason Comments Ear Problem ? earwax x 1 month Reason Comments Cough Chest congestion, PARKER , left ear pain x 2 days Reason Comments Results Reason Comments Fever Cough, congestion, r unny nose chills, x 1 day Reason Comments Results COVID+ Reason Comments Results Erroneous encounter-disregard Care Teams (unrecognized sec tion and content) Social Worker Aide Relationship Specialty Start Date End Date Violet Lazo MD PCP - General Family Practice 02/21/15 Social Worker Aide Relationship Specialty Start Date End Date Violet Lazo MD PCP - General Family Medicine 02/21/15 Social Worker Aide Relationship Specialty Start Date End Date Violet Lazo MD PCP - General Family Medicine 02/21/15 Social Worker Aide Relationship Specialty Start Date End Date Violet Lazo MD PCP - General Family Medicine 02/21/15 Social Worker Aide Relationship Specialty Start Date End Date Violet Lazo MD PCP - General Family Medicine 02/21/15 Social Worker Aide Relationship Specialty Start Date End Date Violet Lazo MD PCP - General Family Medicine 02/21/15 Social Worker Aide Relationship Specialty Start Date End Date Violet Lazo MD PCP - General Family Medicine 02/21/15 Social Worker Aide Relationship Specialty Start Date End Date Violet Lazo MD PCP - General Family Medicine 02/21/15 INFORMATION SOURCE (unrecogn ized section and content) DATE CREATED AUTHOR AUTHOR'S ORGANIZ ATION 01/29/2023 [facility] FOR RECORDS PERTAINING TO PATIENTS WHO ARE OR HAVE BEEN ENROLLED IN A CHEMICAL DEPENDENCY/SUBSTANCEABUSE PROGRAM, SOME INFORMATION MAY BE OMITTED. This clinical summary was aggregated from multiple sources. Caution should be exercised in using it in the provision of clinical care. This summary normalizes information from multiple sources, and as a consequence, information in this document may materially change the coding, format and clinical context of patient data. In addition, data may be omitted in some cases. CLINICAL DECISIONS SHOULD BE BASED ON THE PRIMARY CLINICAL RECORDS. [facility] [employer], [facility]. provides no warranty or guarantee of the accuracy or completeness of information in this document.
[2023-03-31 14:07] LABS: QNTFERON TB Mitogen Value > 10.00 IU/mL (.); QNTFERON TB Nil Value 0.07 IU/mL (.); QNTFERON TB1+ Ag Value 0.05 IU/mL (.); QNTFERON TB2+ Ag Value 0.04 IU/mL (.); QNTIFERON TB Positive Criteria Negative (Negative)
== END | disposition home or self-care (01) ==
LOC: MTLAB 14:09
PROVIDERS: PCP Family Medicine; Referring Provider Dermatology; Visit Provider Dermatology
DX: L40.0 Psoriasis vulgaris (principal); Z79.899 Other long term (current) drug therapy
CPT/HCPCS: 36415; 86480

== ENCOUNTER → 2023-05-17 | Outpatient (CLI) | payer MEDICARE, SELFPAY ==
--- NOTE | 2023-05-17 12:56 | BI_ITS ---
MAMMOGRAPHY - BILATERAL SCREENING REASON FOR EXAM: Female, 78 years old. Routine annual screening examination. PERTINENT HISTORY: Non-contributory. TECHNIQUE: Digital bilateral breast umesh (3D mammographic acquisition) in the CC and MLO projections. 2-D mediolateral oblique (MLO) and craniocaudad (CC) views of both breasts were obtained. CAD: Full Field Digital Mammography with Computer Added Detection was performed. COMPARISON: Comparison is made with prior study of May 24, 2021 and November 19, 2018. FINDINGS: Breast Composition: There are scattered areas of fibroglandular density. There are no dominant masses or suspicious calcifications. No other significant abnormalities are identified. There has been no significant change since the prior study. BI/SCRN MAMM (CAD)W/UMESH BILAT IMPRESSION: Stable bilateral screening mammogram. Yearly follow-up mammogram recommended. (A) ASSESSMENT CATEGORY: BIRADS Category 1: Negative. A letter regarding these results will be sent to the patient by the facility within 30 days. Approximately 10% of breast cancers are not detected by mammography. A normal mammogram should not delay biopsy of a clinically suspicious abnormality. [id number] Electronically Signed: Emiliano Mclaughlin MD at 14:33 EST ,
== END | disposition home or self-care (01) ==
LOC: OPBI 12:56
PROVIDERS: PCP Family Medicine; Referring Provider Nurse Practitioner Family; Visit Provider Nurse Practitioner Family
DX: Z12.31 Encounter for screening mammogram for malignant neoplasm of breast (principal)
CPT/HCPCS: 77063; 77067

== ENCOUNTER → 2023-12-10 | Outpatient (CLI) | payer MEDICARE, SELFPAY ==
[2023-12-10 13:54] LABS: ALB/GLOB Ratio 0.9 RATIO (0.9-2.4); AST(SGOT) 15 U/L (15-37); Alanine Aminotransfer ALT/SGPT 18 U/L (13-56); Albumin, Serum 3.6 g/dL (3.2-5.0); Alkaline Phosphatase 83 U/L (45-117); Anion Gap 9 (5-15); BUN 18 mg/dL (7-18); BUN/Creat Ratio 24.8 RATIO (10-20); Calcium,Total 9.3 mg/dL (8.5-10.1); Chloride 107 mmol/L (98-107); Cholesterol 184 mg/dL (200); Creatinine, Serum 0.72 mg/dL (0.55-1.02); EST Glomerular Filtration Rate 83 mL/min (>60); Est Glom Filt Rate - Afr Amer 100 mL/min (>60); Globulin 3.8 g/dL (2.2-4.2); Glucose 99 mg/dL (74-106); High Density Lipoprotein 52 mg/dL; Potassium 3.7 mmol/L (3.5-5.1); Protein, Total 7.4 g/dL (6.4-8.2); Sodium Level 139 mmol/L (136-145); Triglycerides 128 mg/dL; Very Low Density Lipoprotein 26 mg/dL (5-40)
== END | disposition home or self-care (01) ==
LOC: MFPLAB 09:41
PROVIDERS: PCP Family Medicine; Visit Provider Family Medicine
DX: I10 Essential (primary) hypertension (principal)
CPT/HCPCS: 36415; 80053; 80061; 84443

== ENCOUNTER → 2023-12-12 | Outpatient (CLI) | payer MEDICARE, SELFPAY ==
[2023-12-12 16:00] LABS: Microalbumin,Random Urine 10.2 mg/L (NO RANGE EST.); Microalbumin:Creatinine Ratio 7.5 mg/g CRE (<30 mg/g CRE)
== END | disposition home or self-care (01) ==
LOC: MFPLAB 12:25
PROVIDERS: PCP Family Medicine; Visit Provider Family Medicine
DX: I10 Essential (primary) hypertension (principal)
CPT/HCPCS: 82043; 82570

== ENCOUNTER → 2024-05-09 | Outpatient (CLI) | payer MEDICARE, SELFPAY ==
[2024-05-13 18:07] LABS: QNTFERON TB Mitogen Value > 10.00 IU/mL (.); QNTFERON TB Nil Value 0.03 IU/mL (.); QNTFERON TB1+ Ag Value 0.02 IU/mL (.); QNTFERON TB2+ Ag Value 0.02 IU/mL (.); QNTIFERON TB Positive Criteria Negative (Negative)
== END | disposition home or self-care (01) ==
LOC: MTLAB 10:59
PROVIDERS: PCP Family Medicine; Referring Provider Dermatology; Visit Provider Dermatology
DX: L40.0 Psoriasis vulgaris (principal); Z79.899 Other long term (current) drug therapy
CPT/HCPCS: 36415; 86480

== ENCOUNTER → 2024-05-12 | Outpatient (CLI) | payer MEDICARE, SELFPAY ==
[2024-05-12 15:42] LABS: Absolute Lymphocyte Count 2.65 X10^3/uL (0.83-4.51); Absolute Neutrophil Count 3.5 X10^3/uL (2.0-7.7); Basophil# 0.05 X10^3/uL; Basophil% 0.7 % (0-1); Eosinophil# 0.22 X10^3/uL; Eosinophils% 3.2 % (0-5); Hematocrit 49.2 % (37-47); Hemoglobin 15.9 g/dL (12.0-15.0); Lymphocyte # 2.65 X10^3/ul (0.83-4.51); Lymphocyte % 38.7 % (19-41); Mean Corp Hgb Conc 32.3 g/dL (32-36); Mean Corpuscular Volume 92.8 fL (81-99); Mean Platelet Vol. 10.6 fl (6.2-12.0); Monocyte# 0.46 X10^3/uL; Monocyte% 6.7 % (0-10); NRBC Flagged by Analyzer 0 % (0-5); Neutrophil # 3.45 X10^3/uL (2.7-7.7); Neutrophil % 50.4 % (47-70); Platelet Count 289 K/mm3 (150-450); RBC Distribution Width CV 13.3 % (11.6-14.6); RBC Distribution Width SD 45.3 fl (35.1-43.9); White Blood Count 6.9 K/mm3 (4.4-11.0)
[2024-05-12 16:09] LABS: ALB/GLOB Ratio 0.9 RATIO (0.9-2.4); AST(SGOT) 19 U/L (15-37); Alanine Aminotransfer ALT/SGPT 18 U/L (13-56); Albumin, Serum 3.6 g/dL (3.2-5.0); Alkaline Phosphatase 74 U/L (45-117); Anion Gap 6 (5-15); BUN 14 mg/dL (7-18); BUN/Creat Ratio 17.3 RATIO (10-20); Calcium,Total 9.5 mg/dL (8.5-10.1); Chloride 109 mmol/L (98-107); Cholesterol 187 mg/dL (200); Creatinine, Serum 0.81 mg/dL (0.55-1.02); EST Glomerular Filtration Rate 73 mL/min (>60); Est Glom Filt Rate - Afr Amer 89 mL/min (>60); Glucose 92 mg/dL (74-106); High Density Lipoprotein 49 mg/dL; Protein, Total 7.6 g/dL (6.4-8.2); Sodium Level 140 mmol/L (136-145); Triglycerides 133 mg/dL; Very Low Density Lipoprotein 27 mg/dL (5-40)
== END | disposition home or self-care (01) ==
LOC: MFPLAB 11:57
PROVIDERS: PCP Family Medicine; Referring Provider Family Medicine; Visit Provider Family Medicine
DX: I10 Essential (primary) hypertension (principal)
CPT/HCPCS: 36415; 80053; 80061; 84443; 85025

== ENCOUNTER → 2024-11-10 | Outpatient (CLI) | payer MEDICARE, SELFPAY ==
[2024-11-10 15:49] LABS: Hematocrit 48.3 % (37-47); Hemoglobin 15.8 g/dL (12.0-15.0); Immature Granulocytes Count 0.020 X10^3/uL (0.0-0.0); Mean Corp Hgb Conc 32.7 g/dL (32-36); Mean Corpuscular Volume 92.7 fL (81-99); Mean Platelet Vol. 10.5 fl (6.2-12.0); NRBC Flagged by Analyzer 0 % (0-5); Platelet Count 295 K/mm3 (150-450); RBC Distribution Width CV 12.8 % (11.6-14.6); RBC Distribution Width SD 43.1 fl (35.1-43.9); Red Blood Count 5.21 M/mm3 (4.2-5.4); White Blood Count 6.0 K/mm3 (4.4-11.0)
[2024-11-10 16:05] LABS: Anion Gap 11 (5-15); BUN 13 mg/dL (4-19); BUN/Creat Ratio 18.6 RATIO (10-20); Calcium,Total 9.3 mg/dL (7.6-11.0); Carbon Dioxide 24.2 mmol/L (21.0-32.0); Chloride 107 mmol/L (98-108); Glucose 96 mg/dL (70-99); Potassium 3.9 mmol/L (3.3-5.1)
[2024-11-10 16:12] LABS: Creatinine, Urine (random) 40.90 mg/dL (28.00-217.00); Microalbumin,Random Urine < 12.0 mg/L (<20 mg/L)
== END | disposition home or self-care (01) ==
LOC: MFPLAB 11:27
PROVIDERS: PCP Family Medicine; Visit Provider Family Medicine
DX: I10 Essential (primary) hypertension (principal)
CPT/HCPCS: 36415; 80048; 82043; 82570; 85025